=== PATIENT | female | born 1960 | race Caucasian/White ===

== ENCOUNTER 2019-05-30 12:39 | Emergency (ER) | payer OTHER ==
[2019-05-30] MEDS ORDERED: HYDROCODONE/APAP 10/325 TAB ONE (13:07)
--- NOTE | 2019-05-30 13:31 | RAD REPORT ---
EXAM DESCRIPTION: CT - Thorax Wo Con CLINICAL HISTORY: Chest pain fall, right posterior rib injury and pain COMPARISON: No comparisons FINDINGS: Small noncalcified nodule is seen in the superior segment right lower lobe measuring 4-5 m m (image 31/64). The lungs are otherwise clear. No pleural thickening or pleural effusion. No pneumot horax. No axillary, mediastinal or hilar adenopathy. Minimally displaced fracture of the posterior right eleventh rib is not seen near the costovertebral junction. Cholecystectomy clips. All CT scans are performed using dose optimization technique as appropriate and may include automated exposure control or mA/KV adjustment according to patient size. IMPRESSION: Minimally displaced fracture posterior right eleventh rib near the costovertebral juncti on.
[2019-05-30] MEDS ORDERED: KETOROLAC 30 MG/ML INJ ONE (13:57)
--- NOTE | 2019-05-30 15:11 | EDPHYS ---
Physician Documentation [facility] Name: Anabel Coleman Age: 59 yrs Sex: Female : 1960 Arrival Date: 05/30/2019 Time: 12:43 Bed 19 Private MD: ED Physician Uche Lao HPI: 05/30 13:27 This 59 yrs old Female presents to ER via Ambulatory with complaints of Rib rn pain. 13:27 The patient or guardian reports chest pain that is located primarily in the right rn posterior chest wall. Onset: The symptoms/episode began/occurred this morning. The pain does not radiate. Associated signs and symptoms: Pertinent negatives: abdominal pain, diaphoresis, dizziness, near syncope, shortness of breath, syncope, vomiting. The chest pain is described as sharp, stabbing. Duration: The patient or guardian reports multiple episodes, that wax and wane. Modifying factors: The symptoms are alleviated by remaining still, the symptoms are aggravated by deep breath, movement, palpation of area. Severity of pain: At its worst the pain was moderate. The patient has not experienced similar symptoms in the past. Reports fall from standing, this AM, hit right back of thorax on dresser corner, no other injury other than ribs, no head injury or LOC. Not on blood thinners. . Historical: - Allergies: 12:49 Ciprofloxacin; tw2 12:49 METRONIDAZOLE; tw2 - Home Meds: 12:49 Trazodone Oral [Active]; gabapentin oral oral [Active]; Buspirone Oral [Active]; tw2 Bupropion Oral [Active]; - PMHx: 12:49 Hypertension; PTSD; tw2 - PSHx: 12:49 Cholecystectomy; ; Tubal ligation; tw2 - Immunization history:: Adult Immunizations. - Social history:: Smoking status: . - Ebola Screening: : Patient denies travel to an Ebola-affected area in the 21 days before illness onset. - Family history:: not pertinent. - Hospitalizations: : No recent hospitalization is reported. ROS: 13:27 Constitutional: Negative for fever, chills, and weight loss, Eyes: Negative for injury, rn pain, redness, and discharge, Neck: Negative for injury, pain, and swelling, Cardiovascular: Negative for palpitations, and edema, Respiratory: Negative for shortness of breath, cough, wheezing, and pleuritic chest pain, Abdomen/GI: Negative for abdominal pain, nausea, vomiting, diarrhea, and constipation, Back: Negative for injury and pain, MS/Extremity: Negative for injury and deformity, Skin: Negative for injury, rash, and discoloration, Neuro: Negative for headache, weakness, numbness, tingling, and seizure. Exam: 13:27 Constitutional: This is a well developed, well nourished patient who is awake, alert, rn sitting in bed, in obvious pain Head/Face: Normocephalic, atraumatic. Eyes: Pupils equal round and reactive to light, extra-ocular motions intact. Lids and lashes normal. Conjunctiva and sclera are non-icteric and not injected. Cornea within normal limits. Periorbital areas with no swelling, redness, or edema. ENT: No oral trauma Neck: Trachea midline, no thyromegaly or masses palpated, and no cervical lymphadenopathy. Supple, full range of motion without nuchal rigidity, or vertebral point tenderness. No Meningismus. Chest/axilla: + right posterior inferior ribs with contusion, no crepitus, no mobile segments. Cardiovascular: Regular rate and rhythm. No pulse deficits. Respiratory: Lungs have equal breath sounds bilaterally, clear to auscultation. + splinting with deep breath. Abdomen/GI: soft, non-tender Back: No spinal tenderness. No costovertebral tenderness. Full range of motion. MS/ Extremity: Pulses equal, no cyanosis. Neurovascular intact. Full, normal range of motion. Equal circumference. Neuro: Awake and alert, GCS 15, oriented to person, place, time, and situation. Cranial nerves II-XII grossly intact. Motor strength 5/5 in all extremities. Sensory grossly intact. Cerebellar exam normal. Normal gait. Vital Signs: 12:47 BP 124 / 58; Pulse 58; Resp 17; Temp 98.4(TE); Pulse Ox 98% on R/A; Weight 52.16 kg tw2 (R); Height 5 ft. 3 in. (160.02 cm); Pain 6/10; 13:45 BP 96 / 61; Pulse 62; Resp 16 S; Pulse Ox 98% on R/A; ca1 14:58 BP 116 / 69; Pulse 65; Resp 16 S; Pulse Ox 100% on R/A; ca1 15:00 Pain 2/10; ca1 15:00 Pain 2/10; ca1 15:39 BP 111 / 67; Pulse 71; Resp 16 S; Pulse Ox 98% on R/A; ca1 12:47 Body Mass Index 20.37 (52.16 kg, 160.02 cm) tw2 MDM: 12:51 Patient medically screened. rn 15:09 Differential diagnosis: Blunt Chest Trauma Chest Wall Contusion Chest Wall Injury rn Pneumothorax Pulmonary Contusion Rib Fracture. Data reviewed: vital signs, nurses notes, radiologic studies, CT scan, and as a result, I will discharge patient. Counseling: I had a detailed discussion with the patient and/or guardian regarding: the historical points, exam findings, and any diagnostic results supporting the discharge/admit diagnosis, radiology results, the need for outpatient follow up, to return to the emergency department if symptoms worsen or persist or if there are any questions or concerns that arise at home. Response to treatment: the patient's symptoms have mildly improved after treatment, and as a result, I will discharge patient. Special discussion: I discussed with the patient/guardian in detail that at this point there is no indication for admission to the hospital. It is understood, however, that if the symptoms persist or worsen the patient needs to return immediately for re-evaluation. 05/30 13:01 Order name: CT Chest Wo Con; Complete Time: 13:40 rn 05/30 15:09 Order name: INCENTIVE SPIROMETRY rn Administered Medications: 13:31 Drug: [place] 10 mg-325 mg 1 tabs {Note: RASS - O.} Route: PO; ca1 15:00 Follow up: Pain 2/10 Adult; Response: No adverse reaction; Pain is decreased ca1 13:59 Drug: TORadol - Ketorolac 15 mg Route: IM; Site: right deltoid; ca1 15:00 Follow up: Pain 2/10; Response: No adverse reaction; Pain is decreased ca1 Disposition: 05/30/19 15:10 Discharged to Home. Impression: Fracture of one rib, right side. - Condition is Stable. - Discharge Instructions: Rib Fracture, Incentive Spirometer. - Prescriptions for Ibuprofen 800 mg Oral Tablet - take 1 tablet by ORAL route every 12 hours As needed take with food; 20 tablet. Tylenol- Codeine #3 300-30 mg Oral Tablet - take 2 tablets by ORAL route every 6 hours As needed; 20 tablet. - Medication Reconciliation Form, Thank You Letter, Antibiotic Education, Prescription Opioid Use form. - Follow up: Private Physician; When: As needed; Reason: Recheck today's complaints, Re-evaluation by your physician. - Problem is new. - Symptoms have improved. Signatures: Dispatcher [employer] EDMS Uche Lao MD MD rn Xin Nguyen RN RN tw2 Demetria De La Fuente RN RN ca1 Corrections: (The following items were deleted from the chart) 15:41 15:10 05/30/2019 15:10 Discharged to Home. Impression: Fracture of one rib, right side. ca1 Condition is Stable. Forms are Medication Reconciliation Form, Thank You Letter, Antibiotic Education, Prescription Opioid Use. Follow up: Private Physician; When: As needed; Reason: Recheck today's complaints, Re-evaluation by your physician. Problem is new. Symptoms have improved. rn
--- NOTE | 2019-05-30 15:11 | ER ---
Nurse's Notes [facility] Name: Anabel Coleman Age: 59 yrs Sex: Female : 1960 Arrival Date: 05/30/2019 Time: 12:43 Bed 19 Private MD: Diagnosis: Fracture of one rib, right side Presentation: 05/30 12:46 Presenting complaint: Patient states: i have osteoporosis and fell this morning, i hit tw2 the dresser on right side of my ribs, i might have broken a rib. Transition of care: patient was not received from another setting of care. Onset of symptoms was May 30, 2019. Risk Assessment: Do you want to hurt yourself or someone else? Patient reports no desire to harm self or others. Initial Sepsis Screen: Does the patient meet any 2 criteria? No. Patient's initial sepsis screen is negative. Does the patient have a suspected source of infection? No. Patient's initial sepsis screen is negative. Care prior to arrival: None. 12:46 Method Of Arrival: Ambulatory tw2 12:46 Acuity: SHELTON 4 tw2 Triage Assessment: 12:47 General: Appears uncomfortable, Behavior is calm, cooperative, appropriate for age. tw2 Pain: Complains of pain in RIGHT side ribs. Historical: - Allergies: 12:49 Ciprofloxacin; tw2 12:49 METRONIDAZOLE; tw2 - Home Meds: 12:49 Trazodone Oral [Active]; gabapentin oral oral [Active]; Buspirone Oral [Active]; tw2 Bupropion Oral [Active]; - PMHx: 12:49 Hypertension; PTSD; tw2 - PSHx: 12:49 Cholecystectomy; ; Tubal ligation; tw2 - Immunization history:: Adult Immunizations. - Social history:: Smoking status: . - Ebola Screening: : Patient denies travel to an Ebola-affected area in the 21 days before illness onset. - Family history:: not pertinent. - Hospitalizations: : No recent hospitalization is reported. Screenin:11 Abuse screen: Denies threats or abuse. Denies injuries from another. Nutritional ca1 screening: No deficits noted. Tuberculosis screening: No symptoms or risk factors identified. Fall Risk Fall in past 12 months (25 points). Assessment: 13:11 General: Appears in no apparent distress. comfortable, Behavior is calm, cooperative, ca1 appropriate for age. Pain: Complains of pain in right mid back Pain currently is 10 out of 10 on a pain scale. Neuro: Level of Consciousness is awake, alert, obeys commands, Oriented to person, place, time, situation. Cardiovascular: Heart tones S1 S2 present Capillary refill < 3 seconds Patient's skin is warm and dry. Respiratory: Airway is patent Respiratory effort is even, unlabored, Respiratory pattern is regular, symmetrical, Breath sounds are clear bilaterally. GI: Abdomen is round non-distended, Bowel sounds present X 4 quads. Abd is soft and non tender X 4 quads. : No deficits noted. No signs and/or symptoms were reported regarding the genitourinary system. EENT: No deficits noted. No signs and/or symptoms were reported regarding the EENT system. Derm: Skin is intact, is healthy with good turgor, Skin is pink, warm \T\ dry. Musculoskeletal: Circulation, motion, and sensation intact. Capillary refill < 3 seconds, Range of motion: intact in all extremities. 14:15 Reassessment: Patient appears in no apparent distress at this time. Patient and/or ca1 family updated on plan of care and expected duration. Pain level reassessed. Patient is alert, oriented x 3, equal unlabored respirations, skin warm/dry/pink. 14:56 Reassessment: Patient appears in no apparent distress at this time. Patient and/or ca1 family updated on plan of care and expected duration. Pain level reassessed. Patient is alert, oriented x 3, equal unlabored respirations, skin warm/dry/pink. 15:39 Reassessment: Patient appears in no apparent distress at this time. Instructed on use ca1 of incentive spirometer. Pt demonstrated understanding by appropriately using the device. Vital Signs: 12:47 BP 124 / 58; Pulse 58; Resp 17; Temp 98.4(TE); Pulse Ox 98% on R/A; Weight 52.16 kg tw2 (R); Height 5 ft. 3 in. (160.02 cm); Pain 6/10; 13:45 BP 96 / 61; Pulse 62; Resp 16 S; Pulse Ox 98% on R/A; ca1 14:58 BP 116 / 69; Pulse 65; Resp 16 S; Pulse Ox 100% on R/A; ca1 15:00 Pain 2/10; ca1 15:00 Pain 2/10; ca1 15:39 BP 111 / 67; Pulse 71; Resp 16 S; Pulse Ox 98% on R/A; ca1 12:47 Body Mass Index 20.37 (52.16 kg, 160.02 cm) tw2 ED Course: 12:43 Patient arrived in ED. mr 12:47 Triage completed. tw2 12:47 Arm band placed on. tw2 12:51 Uche Lao MD is Attending Physician. rn 12:53 Demetria De La Fuente RN is Primary Nurse. ca1 13:11 Patient has correct armband on for positive identification. Bed in low position. Call ca1 light in reach. Side rails up X 1. Pulse ox on. NIBP on. Warm blanket given. 13:11 No provider procedures requiring assistance completed. Patient did not have IV access ca1 during this emergency room visit. 13:13 CT completed. Patient tolerated procedure well. Patient moved to CT via wheelchair. sw Patient moved back from CT. 13:14 CT Chest Wo Con In Process Unspecified. EDMS Administered Medications: 13:31 Drug: Edward 10 mg-325 mg 1 tabs {Note: RASS - O.} Route: PO; ca1 15:00 Follow up: Pain 2/10 Adult; Response: No adverse reaction; Pain is decreased ca1 13:59 Drug: TORadol - Ketorolac 15 mg Route: IM; Site: right deltoid; ca1 15:00 Follow up: Pain 2/10; Response: No adverse reaction; Pain is decreased ca1 Outcome: 15:10 Discharge ordered by . rn 15:40 Discharged to home ambulatory, with family. ca1 15:40 Condition: stable 15:40 Discharge instructions given to patient, Instructed on discharge instructions, follow up and referral plans. no drinking with medication, no driving heavy equipment, medication usage, Use of Incentive Spirometer Demonstrated understanding of instructions, follow-up care, medications, Prescriptions given X 2. 15:41 Patient left the ED. ca1 Signatures: Dispatcher [employer] EDIL Makayla Darling Uche Lao MD MD rn Warren, Shannon sw Wise, Tara, RN RN tw2 Demetria De La Fuente RN RN ca1 Corrections: (The following items were deleted from the chart) 13:31 13:11 Pain: Complains of pain in left mid back Pain currently is 10 out of 10 on a pain ca1 scale. ca1
[2019-05-30 15:45] VITALS: TEMP 98.4
[2019-05-30 15:50] VITALS: BP 111/67; O2SAT 98
== END 2019-05-30 15:41 | disposition home or self-care (01) ==
LOC: ER 12:39
DX: S22.31XA Fracture of one rib, right side, initial encounter for closed fracture (principal); W18.00XA Striking against unspecified object with subsequent fall, initial encounter; Y93.89 Activity, other specified; Z88.1 Allergy status to other antibiotic agents; Z88.8 Allergy status to other drugs, medicaments and biological substances
CPT/HCPCS: 71250; 96372; 99284

== ENCOUNTER 2019-06-23 13:46 | Emergency (ER) | payer OTHER ==
[2019-06-23] MEDS ORDERED: ONDANSETRON 4 MG/2 ML VIAL ONE (15:23)
[2019-06-23] MEDS ORDERED: NA CHLORIDE 0.9% 1,000 ML ONE (15:23)
[2019-06-23] MEDS ORDERED: MORPHINE 4 MG/ML SYR ONE (15:23)
[2019-06-23 15:38] LABS: Absolute Lymphocytes (CBC) 1.9 K/uL (0.7-4.9); Basophils % 0.6 % (0-1.3); Hematocrit 37.9 % (36.0-45.0); Lymphocytes % 36.7 % (15.3-44.8)
[2019-06-23 15:53] LABS: Albumin 3.8 g/dL (3.4-5.0); Bilirubin Direct 0.2 mg/dL (0-0.2); Bilirubin Total 0.6 mg/dL (0.2-1.0); Protein, Total 7.2 g/dL (6.4-8.2)
--- NOTE | 2019-06-23 16:11 | ER ---
Nurse's Notes [facility] Name: Anabel Coleman Age: 59 yrs Sex: Female : 1960 Arrival Date: 06/23/2019 Time: 13:49 Bed 15 Private MD: None, None Diagnosis: Upper abdominal pain, unspecified;Nausea and vomiting Presentation: 06/23 13:52 Presenting complaint: Patient states: I am having abd pain, I feel like its my la1 pancreatitis I started getting after they tool my gall bladder out. Transition of care: patient was not received from another setting of care. Onset of symptoms was June 23, 2019. Risk Assessment: Do you want to hurt yourself or someone else? Patient reports no desire to harm self or others. Initial Sepsis Screen: Does the patient meet any 2 criteria? No. Patient's initial sepsis screen is negative. Does the patient have a suspected source of infection? No. Patient's initial sepsis screen is negative. Care prior to arrival: None. 13:52 Method Of Arrival: Ambulatory la1 13:52 Acuity: SHELTON 3 la1 Historical: - Allergies: 13:53 Ciprofloxacin; la1 13:53 METRONIDAZOLE; la1 - PMHx: 13:53 Hypertension; PTSD; la1 - PSHx: 13:53 Cholecystectomy; Tubal ligation; ; la1 - Immunization history:: Adult Immunizations up to date. - Social history:: Smoking status: Patient/guardian denies using tobacco. - Ebola Screening: : No symptoms or risks identified at this time. Screenin:11 Abuse screen: Denies threats or abuse. Nutritional screening: No deficits noted. rb1 Tuberculosis screening: No symptoms or risk factors identified. Fall Risk None identified. Assessment: 15:11 General: Appears in no apparent distress. comfortable, Behavior is calm, cooperative, rb1 Denies fever. Pain: Complains of pain in right upper quadrant Pain radiates to epigastric area Pain currently is 2 out of 10 on a pain scale. Neuro: Level of Consciousness is awake, alert, obeys commands, Oriented to person, place, time, situation. Cardiovascular: Capillary refill < 3 seconds is brisk in bilateral fingers. Respiratory: Airway is patent Respiratory effort is even, unlabored, Respiratory pattern is regular, symmetrical. GI: Bowel sounds present X 4 quads. Abd is soft X 4 quads Reports nausea, vomiting. : No signs and/or symptoms were reported regarding the genitourinary system. Derm: Skin is pink, warm \T\ dry. 16:00 Reassessment: Patient appears in no apparent distress at this time. No changes from rb1 previously documented assessment. 17:00 Reassessment: Patient appears in no apparent distress at this time. Patient and/or rb1 family updated on plan of care and expected duration. Pain level reassessed. Patient is alert, oriented x 3, equal unlabored respirations, skin warm/dry/pink. pain 3/10. Vital Signs: 13:53 BP 122 / 71; Pulse 86; Resp 16; Temp 98.4; Pulse Ox 100% on R/A; Weight 52.16 kg; la1 Height 5 ft. 3 in. (160.02 cm); 15:34 BP 120 / 69; Pulse 62; Resp 17; Pulse Ox 97% ; Pain 2/10; rb1 16:30 BP 112 / 77; Pulse 54; Resp 16; Pulse Ox 95% ; Pain 2/10; rb1 17:10 BP 124 / 70; Pulse 69; Resp 17; Pulse Ox 100% on R/A; rb1 13:53 Body Mass Index 20.37 (52.16 kg, 160.02 cm) la1 15:34 pain comes and goes per pt. report rb1 ED Course: 13:49 Patient arrived in ED. ag5 13:50 None, None is Private Physician. ag5 13:52 Triage completed. la1 13:53 Arm band placed on right wrist. la1 14:49 Mame Vasquez, RN is Primary Nurse. rb1 15:02 Patsy Hernandez FNP-C is [facility]. kb 15:02 Uche Lao MD is Attending Physician. kb 15:26 Initial lab(s) drawn, by ga, sent to lab. Inserted saline lock: 22 gauge in right mh5 antecubital area, using aseptic technique. 15:27 Basic Metabolic Panel Sent. mh5 15:27 CBC with Diff Sent. mh5 15:27 Hepatic Function Sent. mh5 15:27 Lipase Sent. mh5 15:28 Patient has correct armband on for positive identification. Placed in gown. Bed in low mh5 position. Call light in reach. Side rails up X 1. Warm blanket given. Pulse ox on. NIBP on. 17:15 No provider procedures requiring assistance completed. IV discontinued, intact, rb1 bleeding controlled, No redness/swelling at site. Pressure dressing applied. Administered Medications: 15:33 Drug: NS 0.9% 1000 ml Route: IV; Rate: 1000 ml; Site: right antecubital; rb1 16:43 Follow up: IV Status: Completed infusion rb1 15:33 Drug: Zofran 4 mg Route: IVP; Site: right antecubital; rb1 15:50 Follow up: Response: No adverse reaction; Nausea is decreased rb1 15:33 Drug: morphine 4 mg Route: IVP; Site: right antecubital; rb1 15:50 Follow up: Response: No adverse reaction; Pain is decreased rb1 17:00 Drug: TORadol - Ketorolac 15 mg Route: IVP; Site: right antecubital; rb1 17:14 Follow up: Response: No adverse reaction rb1 17:19 Follow up: Computer program is not timing the follow up with the correct times. Edited rb1 time is 1714 17:00 Drug: Bentyl 20 mg Route: PO; rb1 17:14 Follow up: Response: No adverse reaction rb1 17:18 Follow up: Error in time; Time edit 1714 rb1 Intake: Outcome: 16:10 Discharge ordered by . kb 17:15 Patient left the ED. rb1 17:15 Discharged to home ambulatory. rb1 17:15 Condition: stable 17:15 Discharge instructions given to patient, Instructed on discharge instructions, follow up and referral plans. medication usage, Demonstrated understanding of instructions, follow-up care, medications, Prescriptions given X 2. Signatures: Patsy Hernandez, ALYSIA-C ALYSIA-Jhon Blanco RN RN la1 Mame Vasquez, JULIETTE RN rb1 Anabel Payne 5 Twan Mata [facility]
--- NOTE | 2019-06-23 16:12 | EDPHYS ---
Physician Documentation [facility] Name: Anabel Coleman Age: 59 yrs Sex: Female : 1960 Arrival Date: 06/23/2019 Time: 13:49 Bed 15 Private MD: None, None ED Physician Uche Lao HPI: 06/23 15:50 This 59 yrs old Female presents to ER via Ambulatory with complaints of kb Abdominal Pain, Nausea/Vomiting. 15:50 The patient presents with abdominal pain in the upper abdomen. Onset: The kb symptoms/episode began/occurred today, at 12:00. The symptoms do not radiate. Associated signs and symptoms: Pertinent positives: nausea and vomiting. The symptoms are described as constant. Modifying factors: The symptoms are alleviated by nothing, the symptoms are aggravated by nothing. Severity of pain: At its worst the pain was moderate in the emergency department the pain has improved mildly. The patient has experienced similar episodes in the past, several times, today's symptoms are similar, to previous pancreatitis. The patient has not recently seen a physician. Pt reports she had her gallbladder removed 5 years ago and it made her have pancreatitis 3 times that year afterwards. States she has gotten it since then a few times when she eats something that flares it up. Today she had a tamale and it caused her to have upper abd pain, nausea and vomiting. Historical: - Allergies: 13:53 Ciprofloxacin; la1 13:53 METRONIDAZOLE; la1 - PMHx: 13:53 Hypertension; PTSD; la1 - PSHx: 13:53 Cholecystectomy; Tubal ligation; ; la1 - Immunization history:: Adult Immunizations up to date. - Social history:: Smoking status: Patient/guardian denies using tobacco. - Ebola Screening: : No symptoms or risks identified at this time. ROS: 15:54 Constitutional: Negative for fever, chills, and weight loss, ENT: Negative for injury, kb pain, and discharge, Neck: Negative for injury, pain, and swelling, Cardiovascular: Negative for chest pain, palpitations, and edema, Respiratory: Negative for shortness of breath, cough, wheezing, and pleuritic chest pain, Back: Negative for injury and pain, : Negative for injury, bleeding, discharge, and swelling, MS/Extremity: Negative for injury and deformity, Skin: Negative for injury, rash, and discoloration, Neuro: Negative for headache, weakness, numbness, tingling, and seizure. 15:54 Abdomen/GI: Positive for abdominal pain, nausea and vomiting, Negative for diarrhea, constipation, abdominal cramps, abdominal distension, anorexia. Exam: 15:54 Constitutional: This is a well developed, well nourished patient who is awake, alert, kb and in no acute distress. Head/Face: Normocephalic, atraumatic. Neck: Trachea midline, no thyromegaly or masses palpated, and no cervical lymphadenopathy. Supple, full range of motion without nuchal rigidity, or vertebral point tenderness. No Meningismus. Chest/axilla: Normal chest wall appearance and motion. Nontender with no deformity. No lesions are appreciated. Cardiovascular: Regular rate and rhythm with a normal S1 and S2. No gallops, murmurs, or rubs. Normal PMI, no JVD. No pulse deficits. Respiratory: Lungs have equal breath sounds bilaterally, clear to auscultation and percussion. No rales, rhonchi or wheezes noted. No increased work of breathing, no retractions or nasal flaring. Back: No spinal tenderness. No costovertebral tenderness. Full range of motion. Skin: Warm, dry with normal turgor. Normal color with no rashes, no lesions, and no evidence of cellulitis. MS/ Extremity: Pulses equal, no cyanosis. Neurovascular intact. Full, normal range of motion. Neuro: Awake and alert, GCS 15, oriented to person, place, time, and situation. Cranial nerves II-XII grossly intact. Motor strength 5/5 in all extremities. Sensory grossly intact. Cerebellar exam normal. Normal gait. 15:54 Abdomen/GI: Inspection: abdomen appears normal, Bowel sounds: normal, in all quadrants, Palpation: soft, in all quadrants, mild abdominal tenderness, in the right upper quadrant and left upper quadrant. Vital Signs: 13:53 BP 122 / 71; Pulse 86; Resp 16; Temp 98.4; Pulse Ox 100% on R/A; Weight 52.16 kg; la1 Height 5 ft. 3 in. (160.02 cm); 15:34 BP 120 / 69; Pulse 62; Resp 17; Pulse Ox 97% ; Pain 2/10; rb1 16:30 BP 112 / 77; Pulse 54; Resp 16; Pulse Ox 95% ; Pain 2/10; rb1 17:10 BP 124 / 70; Pulse 69; Resp 17; Pulse Ox 100% on R/A; rb1 13:53 Body Mass Index 20.37 (52.16 kg, 160.02 cm) la1 15:34 pain comes and goes per pt. report rb1 MDM: 15:03 Patient medically screened. kb 15:55 Data reviewed: vital signs, nurses notes. Data interpreted: Pulse oximetry: on room air kb is 97 %. Interpretation: normal. 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 06/23 15:06 Order name: Basic Metabolic Panel; Complete Time: 15:55 kb 06/23 15:06 Order name: CBC with Diff; Complete Time: 15:55 kb 06/23 15:06 Order name: Hepatic Function; Complete Time: 15:55 kb 06/23 15:06 Order name: Lipase; Complete Time: 15:55 kb 06/23 15:06 Order name: IV Saline Lock; Complete Time: 15:27 kb 06/23 15:06 Order name: Labs collected and sent; Complete Time: 15:27 kb Administered Medications: 15:33 Drug: NS 0.9% 1000 ml Route: IV; Rate: 1000 ml; Site: right antecubital; rb1 16:43 Follow up: IV Status: Completed infusion rb1 15:33 Drug: Zofran 4 mg Route: IVP; Site: right antecubital; rb1 15:50 Follow up: Response: No adverse reaction; Nausea is decreased rb1 15:33 Drug: morphine 4 mg Route: IVP; Site: right antecubital; rb1 15:50 Follow up: Response: No adverse reaction; Pain is decreased rb1 17:00 Drug: TORadol - Ketorolac 15 mg Route: IVP; Site: right antecubital; rb1 17:14 Follow up: Response: No adverse reaction rb1 17:19 Follow up: Computer program is not timing the follow up with the correct times. Edited rb1 time is 2937 17:00 Drug: Bentyl 20 mg Route: PO; rb1 17:14 Follow up: Response: No adverse reaction rb1 17:18 Follow up: Error in time; Time edit 1714 rb1 Disposition: 17:30 Co-signature as Attending Physician, Uche Lao MD. rn Disposition: 06/23/19 16:10 Discharged to Home. Impression: Upper abdominal pain, unspecified, Nausea and vomiting. - Condition is Stable. - Discharge Instructions: Nausea and Vomiting, Adult, Phby-cs-Vpwm, Abdominal Pain, Adult, Onlj-ze-Htri. - Prescriptions for Bentyl 20 mg Oral Tablet - take 1 tablet by ORAL route every 6 hours As needed; 20 tablet. Zofran 4 mg Oral Tablet - take 1 tablet by ORAL route every 6 hours As needed; 20 tablet. - Medication Reconciliation Form, Thank You Letter, Antibiotic Education, Prescription Opioid Use form. - Follow up: Emergency Department; When: As needed; Reason: Worsening of condition. Follow up: Private Physician; When: 2 - 3 days; Reason: Recheck today's complaints, Continuance of care, Re-evaluation by your physician. Signatures: Dispatcher [employer] EDNE Patsy Hernandez, DOUGH CATCHER-C DOUGH CATCHER-Ckb Uche Lao MD MD rn Attema, Lee, RN RN la1 Mame Vasquez RN RN rb1 Corrections: (The following items were deleted from the chart) 17:15 16:10 06/23/2019 16:10 Discharged to Home. Impression: Upper abdominal pain, rb1 unspecified; Nausea and vomiting. Condition is Stable. Forms are Medication Reconciliation Form, Thank You Letter, Antibiotic Education, Prescription Opioid Use. Follow up: Emergency Department; When: As needed; Reason: Worsening of condition. Follow up: Private Physician; When: 2 - 3 days; Reason: Recheck today's complaints, Continuance of care, Re-evaluation by your physician. kb
[2019-06-23] MEDS ORDERED: KETOROLAC 30 MG/ML INJ ONE (16:59)
[2019-06-23] MEDS ORDERED: DICYCLOMINE HCL 10 MG CAP ONE (16:59)
[2019-06-23 18:06] VITALS: TEMP 98.4
[2019-06-23 18:09] VITALS: BP 112/77; O2SAT 95
== END 2019-06-23 17:15 | disposition home or self-care (01) ==
LOC: ER 13:46
DX: R11.2 Nausea with vomiting, unspecified (principal); I10 Essential (primary) hypertension; Z88.1 Allergy status to other antibiotic agents; Z88.8 Allergy status to other drugs, medicaments and biological substances
CPT/HCPCS: 96361; 85025; 80048; 36415; 80076; 83690; 96375; 96374; 99284; J7030; J2405

== ENCOUNTER 2020-12-27 07:15 | Day surgery (SDC) | payer OTHER ==
[2020-12-27] MEDS ORDERED: Ringers Lactate 1,000 ML IV ONE (07:48)
[2020-12-27] MEDS ORDERED: LIDOCAINE 1% W/EPI 1:100,000 MDV 20 ML VIAL ONE (07:54)
[2020-12-27] MEDS ORDERED: NA CHLORIDE 0.9% 1,000 ML ONE (07:54)
[2020-12-27] MEDS ORDERED: MIDAZOLAM HCL 2 MG/2 ML INJ ONE (08:49)
[2020-12-27] MEDS ORDERED: LIDOCAINE 1% MPF 5 ML VIAL ONE (08:49)
[2020-12-27] MEDS ORDERED: propofoL 200 MG/20 ML VIAL IV ONE (08:49)
[2020-12-27] MEDS ORDERED: FENTANYL CITR 100 MCG/2 ML ONE (08:58)
[2020-12-27] MEDS ORDERED: dexAMETHasone 10 MG/ML VIAL ONE (09:06)
[2020-12-27] MEDS ORDERED: KETOROLAC 30 MG/ML INJ ONE (09:06)
[2020-12-27] MEDS ORDERED: ONDANSETRON 4 MG/2 ML VIAL ONE (09:14)
[2020-12-27] MEDS: MORPHINE 4 MG/ML SYR ONE ×2 (09:40→09:45)
[2020-12-27 09:42] VITALS: O2SAT 98
[2020-12-27 11:33] VITALS: BP 112/63; TEMP 98.2
--- NOTE | 2020-12-27 17:05 | OP ---
Date of Procedure: 12/27/2020 Surgeon: Wen Car MD Preoperative Diagnosis: Postmenopausal bleeding. Postoperative Diagnosis: Postmenopausal bleeding. Procedures Performed: Hysteroscopy, D and C. Anesthesia: General with LMA. Specimens: Endometrial curettings. Complications: No complications. Drains: No drains. Condition: Stable. Findings: Vaginal diameter at the introitus very narrow. On hysteroscopic examination, the uterine cavity had very thin endometrial lining. There was adequate visualization in the entire cavity. No evidence of any irregular endometrium intracavitary polyps. On curettage, scant endometrium was retr ieved. Indications: The patient is a 60-year-old female, who presented with postmenopausal bleeding to Dr. Knott. She was evaluated and was recommended to have an ultrasound and a hysteroscopic biopsy. She was then concerned about her plan of care and came for a second opinion. I had explained that was a routine standard of care to be doing an ultrasound followed by a hysteroscopic evaluation of the endo metrium. So, once all these were explained, she was given choice to go back to Dr. Knott as he had m gwen the same plan; however, the patient wanted to continue to stay for the evaluation here, so she wa s consented for hysteroscopy, D and C. Description Of Procedure: After informed consent was verified, she was taken back to OR, placed in a supine fashion on the operating table. After general anesthesia was given, she was placed in dorsal lithotomy position. General anesthesia was chosen for this patient as she has extreme anxiety, hist ory of severe PTSD. She was then placed in a dorsal lithotomy position. Vulva, vagina, and perineum were prepped and draped in a sterile fashion. Speculum placed to expose the cervix with a bivalve s peculum. There were periurethral lacerations superficial. So even though the speculum was just medi um, it was difficult to avoid those. The speculum was removed. A smaller speculum placed in the pos terior vagina after grasping the anterior lip of the cervix. Then, the cervix was injected with 1% l idocaine mixed with 1:100,000 epinephrine, 5 cc anterior, 12 o'clock position, and 4 and 8 o'clock po sitions of the cervicovaginal junction and other 5 cc each. Next, the external os was slightly furth er opened up with the help of a hemostat and anterior lip grasped better with 2 Allis. Diagnostic Sl imLine hysteroscope was introduced into the cervical canal and under direct vision, the uterine cavit y was entered. This was very tight. I had to gently and carefully, but firmly pass through the cerv ical canal in order to get to the uterus. Once I was in the uterine cavity, there was excellent visu alization. One intrauterine adhesion was seen. No intracavitary lesions. The endometrium appeared to be well visualized and no evidence of any tumors. So, the scope was removed. The cervix was dila jelly to 16-Tamazight. The cavity length was only 5 cm with a very tiny cavity, so I used a narrow endoce rvical curettes to curette the endometrium as well. The 0 curette did not fit in. Also given the fa ct that her uterus was so small, I did not see any need for any further MyoSure based biopsy as this is very thin and consistent with just atrophic endometrium. We discussed having of using the device with the MyoSure perforation in such a thin postmenopausal uterus was high, so I decided not to use t he device. The instruments were removed. Curettings were handed over for permanent pathology. Instrument, need le, and sponge counts were done and were correct at the case of the case. The periurethral and vesti bular lacerations were visualized. They were less than half a cm on the periurethral areas and just under a cm on the vestibule. They were hemostatic, just had some ecchymosis, did not need any suture s. The patient was recovered from anesthesia and taken to PACU in stable condition. She has a 1-week followup appointment with me. Plan would be just to observe the patient and do a repeat ultrasound in 6 months. ROBLES/MANOJ Voice ID: [id number] Report ID: [id number]
== END 2020-12-27 11:15 | disposition home or self-care (01) ==
LOC: OR 07:15
PROVIDERS: ATTEND Obstetrics & Gynecology
PROC: 0UJD8ZZ Inspection of Uterus and Cervix, Via Natural or Artificial Opening Endoscopic (ICD-10-PCS; 2020-12-27)
PROC: 0UDB7ZX Extraction of Endometrium, Via Natural or Artificial Opening, Diagnostic (ICD-10-PCS; principal; 2020-12-27 08:15)
DX: N95.0 Postmenopausal bleeding (principal); K85.90 Acute pancreatitis without necrosis or infection, unspecified; F33.1 Major depressive disorder, recurrent, moderate; F41.9 Anxiety disorder, unspecified; Z20.822 Contact with and (suspected) exposure to COVID-19
CPT/HCPCS: 88305; 58558; U0002; J2704; J2250; J3010; J1100; J7120; J7030; J2405

== ENCOUNTER 2021-12-31 08:21 | Emergency (ER) | payer OTHER ==
--- OUTSIDE RECORDS SUMMARY | 2021-12-31 08:23 | XMS REPORT | Continuity of Care Document ---
:1960 Author Organization [facility] t Address [address] [place] [address] Care Team Providers Name Role Phone Naveed CHARLES Primary Care Physician Unavailable Kwabena Berger MD Attending Clinician Kwabena BERGER Attending Clinician Unavailable Kwabena BERGER Attending Clinician Unavailable Payers Payer Name Policy Type Policy Number Effective Date Expiration Date S ource Problems Condition Condition Condition Status Onset Resolution Last Treating Co mments Source Name Details Category Date Date Treatment Clinician Date No known No known Disease Unive rs active active ity of problems problems [facility] Allergies, Adverse Reactions, Alerts Allergy Allergy Status Severity Reaction(s) Onset Inactive Treating Comm ents Source Name Type Date Date Clinician NO KNOWN Drug Active Univers ALLERGIE Class ity of S [facility] Social History Social Habit Start Date Stop Date Quantity Comments Source Exposure to Not sure [facility] SARS-CoV-2 (event) [facility] Sex Ass[birth year] At [birth year] [facility] 00:00:00 00:00:00 [facility] Smoking Status Start Date Stop Date Source Unknown if ever smoked [facility] Medications Ordered Filled Start Stop Current Ordering Indication Dosage Frequency Signature Comments Components Source Medication Medication Date Date Medication? Clinician (SIG) Name Name No known 2020-08 No [facility] medications 2-08 ity of 10:12: [address] No known 2020-08 No [facility] medications 2-08 ity of 10:12: [address] Immunizations Ordered Filled Immunization Date Status Comments Sour e Immunization Name Name SARS-COV-2 COVID-19 2020-12-07 Completed Unive rsity of PFIZER VACCINE 00:00:[address] [facility] SARS-COV-2 COVID-19 2020-12-07 Completed Unive rsity of PFIZER VACCINE 00:00:[address] [facility] SARS-COV-2 COVID-19 2020-11-17 Completed Unive rsity of PFIZER VACCINE 00:00:[address] [facility] SARS-COV-2 COVID-19 2020-11-17 Completed Unive rsity of PFIZER VACCINE 00:00:[address] [facility] Vital Signs Vital Name Observation Time Observation Value Comments Source Systolic blood 2021-07-10 16:17:00 109 mm[Hg] Univer sity of pressure [facility] Diastolic blood 2021-07-10 16:17:00 69 mm[Hg] Unive rsity of pressure [facility] Heart rate 2021-07-10 16:17:00 64 /min [facility] Body temperature 2021-07-10 16:17:00 36.06 Laurita [facility] Respiratory rate 2021-07-10 16:17:00 18 /min [facility] Body height 2021-07-10 16:17:00 160 cm [facility] Body weight 2021-07-10 16:17:00 59.966 kg [facility] BMI 2021-07-10 16:17:00 23.42 kg/m2 [facility] Oxygen saturation in 2021-07-10 16:17:00 97 /min [facility] Arterial blood by [facility] Pulse oximetry Branch Procedures This patient has no known procedures. Encounters Start End Encounter Admission Attending Care Care Encounter Source Date/Time Date/Time Type Type Clinicians Facility Department ID 2021-07-10 2021-07-10 Office Ab MESKYLER [id number] [facility] 10:07:23 10:27:23 Visit Audie LISA [id number] Yousuf [id number] Lionel MARIO [id number] Mn dical NAL 085 [facility] 2021-07-10 2021-07-10 Outpatient R AUDIE BERGER [facility] [id number] [facility] 10:00:00 10:00:00 AUDIE BERGER [facility] Results This patient has no known results.
[2021-12-31] MEDS ORDERED: MORPHINE 4 MG/ML SYR ONE (08:54)
[2021-12-31] MEDS ORDERED: ONDANSETRON 4 MG/2 ML VIAL ONE ×2 (08:54→11:56)
[2021-12-31] MEDS ORDERED: NA CHLORIDE 0.9% 1,000 ML ONE (08:54)
[2021-12-31 09:26] LABS: Absolute Lymphocytes (CBC) 0.8 K/uL (0.7-4.9); Hematocrit 41.7 % (36.0-45.0); Lymphocytes % 4.3 % (15.3-44.8); MPV 7.8 fL (7.6-11.3); RBC Red Blood Cell Count 4.53 M/uL (3.86-4.86)
[2021-12-31 09:27] LABS: Protime INR 1.19
[2021-12-31 09:41] LABS: Albumin 4.2 g/dL (3.4-5.0); Bilirubin Total 1.4 mg/dL (0.2-1.0); Potassium 3.1 mmol/L (3.5-5.1); Protein, Total 7.9 g/dL (6.4-8.2)
[2021-12-31] MEDS ORDERED: PROMETHAZINE INJ 25 MG/ML AMP ONE (09:57)
[2021-12-31 09:58] LABS: Blood Morphology Comment NOT SEEN (NOT SEEN); Platelet Estimate ADEQ
--- NOTE | 2021-12-31 10:14 | RAD REPORT ---
EXAM DESCRIPTION: CTAbdomen Pelvis W Contrast - 12/31/2021 10:04 am CLINICAL HISTORY: Epigastric pain COMPARISON: CT ABD PELVIS W CONTRAST dated 03/13/2014 TECHNIQUE: CT of the abdomen and pelvis was performed. All CT scans are performed using dose optimization technique as appropriate and may include automated exposure control or mA/KV adjustment according to patient size. FINDINGS: Lower chest: Small hiatal hernia. Liver: No acute abnormality or suspicious lesions. Biliary: Cholecystectomy. Mild intra and extrahepatic biliary ductal dilatation is likely related to the postcholecystectomy state. It is unchanged since 2013. Stomach: Small hiatal hernia. Duodenum: No significant focal abnormality. Pancreas: No significant abnormality. Spleen: No significant abnormality. Adrenal: No suspicious lesions. Kidney/ureter: No hydronephrosis. No renal calculi. Too small to characterize and/or benign appearing renal lesions are noted. Retroperitoneum: No retroperitoneal adenopathy. Vascular: No aneurysm. Bowel: Normal appendix.. Peritoneum: No ascites or free air. Bladder: Grossly unremarkable. Reproductive: 16 mm intramural fibroid. Bones: No acute fracture. Other: n/a IMPRESSION: No acute intra-abdominal or pelvic finding. Incidental findings as noted above.
[2021-12-31] MEDS ORDERED: POTASSIUM CL SA 10 MEQ TAB PO ONE (11:00)
--- NOTE | 2021-12-31 11:04 | EDPHYS ---
Physician Documentation [facility] Name: Anabel Coleman Age: 61 yrs Sex: Female : 1960 Arrival Date: 12/31/2021 Time: 08: Bed 20 Private MD: ED Physician Bartolome Pope HPI: 12/31 08:34 This 61 yrs old Female presents to ER via Wheelchair with complaints of Vomiting, jh7 Nausea. 08:34 The patient presents to the emergency department with nausea, vomiting, described as jh7 coffee ground in nature, diarrhea, abdominal pain. Onset: The symptoms/episode began/occurred 4 day(s) ago. Patient presents with nausea vomiting and diarrhea since Thursday. States that she has a history of bleeding ulcers, but reports that that was many years ago. States that she has been vomiting blood, and that her stool has been dark. Also complains of epigastric pain. Patient is actively vomiting in triage.. Historical: - Allergies: 08:30 Ciprofloxacin; iw 08:30 metronidazole; iw - PMHx: 08:30 Hypertension; PTSD; iw ROS: 08:34 ENT: Negative for injury, pain, and discharge, Cardiovascular: Negative for chest pain, jh7 palpitations, and edema, Respiratory: Negative for shortness of breath, cough, wheezing, and pleuritic chest pain, Back: Negative for injury and pain, Skin: Negative for injury, rash, and discoloration, Neuro: Negative for headache, weakness, numbness, tingling, and seizure. 08:34 Constitutional: Positive for fatigue, poor PO intake, Negative for chills, fever. 08:34 Abdomen/GI: Positive for abdominal pain, nausea, vomiting, and diarrhea, black/tarry stool. 08:34 All other systems are negative. Exam: 08:34 ENT: Nares patent. No nasal discharge, no septal abnormalities noted. Oropharynx with jh7 no redness, swelling, or masses, exudates, or evidence of obstruction, uvula midline. Mucous membranes moist. Cardiovascular: Regular rate and rhythm with a normal S1 and S2. No gallops, murmurs, or rubs. Normal PMI, no JVD. No pulse deficits. Respiratory: Lungs have equal breath sounds bilaterally, clear to auscultation and percussion. No rales, rhonchi or wheezes noted. No increased work of breathing, no retractions or nasal flaring. Back: No spinal tenderness. No costovertebral tenderness. Full range of motion. Skin: Warm, dry with normal turgor. Normal color with no rashes, no lesions, and no evidence of cellulitis. MS/ Extremity: Pulses equal, no cyanosis. Neurovascular intact. Full, normal range of motion. Neuro: Awake and alert, GCS 15, oriented to person, place, time, and situation. Normal gait. 08:34 Constitutional: The patient appears alert, awake, pale, restless, uncomfortable. 08:34 Abdomen/GI: Inspection: abdomen appears normal, Bowel sounds: normal, Palpation: moderate abdominal tenderness, in the epigastric area. Vital Signs: 08:29 BP 102 / 77; Pulse 68; Resp 18; Temp 99.3; Pulse Ox 97% on R/A; iw 09:00 BP 122 / 58; Pulse 75; Resp 16; Temp 99.0(O); Pulse Ox 99% on R/A; vg1 10:15 BP 96 / 49; Pulse 76; Resp 16; Pulse Ox 100% on R/A; vg1 11:55 BP 103 / 62; Pulse 72; Resp 16; Pulse Ox 99% on R/A; vg1 MDM: 08:34 Patient medically screened. [facility] 11:24 Differential diagnosis: gastroenteritis. Data reviewed: vital signs, nurses notes, lab [facility] test result(s), radiologic studies, CT scan, I have discussed the patient's presentation/case with the attending Emergency Department Physician;. Data interpreted: Pulse oximetry: is 100 %. Interpretation: normal. Counseling: I had a detailed discussion with the patient and/or guardian regarding: the historical points, exam findings, and any diagnostic results supporting the discharge/admit diagnosis, the need for outpatient follow up, a digital sales planner. Response to treatment: the patient's symptoms have markedly improved after treatment. ED course: The patient remained hemodynamically stable throughout the ER visit. Her hemoglobin and hematocrit were within normal range, her CT was negative, and her stool occult was negative as well. She markedly improved after medication therapy and passed a p.o. challenge. She was advised to follow-up with GI outpatient. If her symptoms return, worsen, or any new concerning symptoms develop, she was advised to return to the ER for further eval. The patient understood the plan of care and felt comfortable with being discharged.. 12/31 08:34 Order name: CBC with Diff; Complete Time: 10:10 7 12/31 08:34 Order name: CMP; Complete Time: 09:43 7 12/31 08:34 Order name: Lipase; Complete Time: 09:43 7 12/31 08:34 Order name: PT-INR; Complete Time: 09:32 7 12/31 08:34 Order name: Type And Screen; Complete Time: 10:10 7 12/31 08:34 Order name: CT Abd/Pelvis - IV Contrast Only; Complete Time: 10:25 [facility] 12/31 09:58 Order name: Manual Differential; Complete Time: 10:10 [facility] 12/31 10:32 Order name: COVID-19 SARS RT PCR (Document "Date of Onset" if Symptomatic) [facility] 12/31 11:02 Order name: Guiac; Complete Time: 11:26 [facility] 12/31 11:20 Order name: ABO/RH no charge; Complete Time: 11:26 [facility] 12/31 08:34 Order name: IV Saline Lock; Complete Time: 09:16 7 12/31 08:34 Order name: Labs collected and sent; Complete Time: 09:16 7 Administered Medications: 09:03 Drug: NS 0.9% 1000 ml Route: IV; Rate: 1 bolus; Site: right antecubital; vg1 10:59 Follow up: IV Status: Completed infusion; IV Intake: 1000ml vg1 09:03 Drug: Zofran (Ondansetron) 4 mg Route: IVP; Site: right antecubital; vg1 09:55 Follow up: Response: No adverse reaction; No change in condition vg1 09:05 Drug: morphine 4 mg Route: IVP; Infused Over: 4 mins; Site: right antecubital; vg1 09:55 Follow up: Response: No adverse reaction; Marked relief of symptoms vg1 09:55 Drug: Phenergan (promethazine) 12.5 mg Route: IVP; Site: right antecubital; vg1 11:00 Follow up: Response: No adverse reaction; Marked relief of symptoms; Nausea is decreasedvg1 11:00 Drug: Potassium Chloride 40 mEq Route: PO; vg1 11:56 Follow up: Response: No adverse reaction vg1 11:02 Not Given (Pharmacy stated out of medication): Pepcid (famotidine) 20 mg IVP once; vg1 dilute with 10 mL 0.9% NaCl; give over 2 minutes 11:50 Drug: Zofran (Ondansetron) 4 mg Route: IVP; Site: right antecubital; vg1 11:56 Follow up: Response: Medication administered at discharge. vg1 Disposition: 21:59 Co-signature as Attending Physician, Bartolome Pope DO I was immediately available on-site ms3 in the Emergency Department for consultation in the care of the patient. . Disposition Summary: 12/31/21 11:03 Discharge Ordered Location: Home [facility] Problem: new [facility] Symptoms: have improved [facility] Condition: Stable [facility] Diagnosis - Nausea with vomiting, unspecified [facility] Followup: [facility] - With: Rocky Rudolph MD - When: 2 - 3 days - Reason: Further diagnostic work-up, Recheck today's complaints Discharge Instructions: - Discharge Summary Sheet [facility] - Nausea and Vomiting, Adult [facility] - Nausea, Adult [facility] Forms: - Medication Reconciliation Form [facility] - Thank You Letter [facility] Prescriptions: - ondansetron 4 mg Oral tablet,disintegrating - take 1 tablet by ORAL route 4 times per day As needed; 20 tablet; Refills: 0, [facility] Product Selection Permitted - Pepcid 20 mg Oral Tablet - take 1 tablet by ORAL route once daily; 20 tablet; Refills: 0, Product jh7 Selection Permitted - dicyclomine 20 mg Oral Tablet - take 1 tablet by ORAL route 3 times per day; 21 tablet; Refills: 0, Product 7 Selection Permitted Signatures: Dispatcher [employer] Cait Magana RN Clementine Peralta RN RN vg1 Sims, Marcus, DO DO ms3 Lili Mane FNP BIOLOGY RESEARCH ASSISTANT [facility]
--- NOTE | 2021-12-31 11:04 | ER ---
Nurse's Notes [facility] Name: Anabel Coleman Age: 61 yrs Sex: Female : 1960 Arrival Date: 12/31/2021 Time: 08:25 Bed 20 Private MD: Diagnosis: Nausea with vomiting, unspecified Presentation: 12/31 08:29 Chief complaint: Patient states: vomiting since Thursday night, vomiting blood and bile. iw Coronavirus screen: Client presents with at least one sign or symptom that may indicate coronavirus-19. Ebola Screen: Patient negative for fever greater than or equal to 101.5 degrees Fahrenheit, and additional compatible Ebola Virus Disease symptoms Patient denies exposure to infectious person. Patient denies travel to an Ebola-affected area in the 21 days before illness onset. No symptoms or risks identified at this time. Initial Sepsis Screen: Does the patient meet any 2 criteria? No. Patient's initial sepsis screen is negative. Does the patient have a suspected source of infection? No. Patient's initial sepsis screen is negative. Risk Assessment: Do you want to hurt yourself or someone else? Patient reports no desire to harm self or others. Onset of symptoms was December 28, 2021. 08:29 Method Of Arrival: Wheelchair iw 08:29 Acuity: SHELTON 3 iw Historical: - Allergies: 08:30 Ciprofloxacin; iw 08:30 metronidazole; iw - PMHx: 08:30 Hypertension; PTSD; iw Screenin:19 Abuse screen: Denies threats or abuse. Nutritional screening: Has had N/V for 3 or more vg1 days. Tuberculosis screening: No symptoms or risk factors identified. Fall Risk No fall in past 12 months (0 pts). No secondary diagnosis (0 pts). IV access (20 points). Ambulatory Aid- None/Bed Rest/Nurse Assist (0 pts). Gait- Normal/Bed Rest/Wheelchair (0 pts) Mental Status- Oriented to own ability (0 pts). Total Whitt Fall Scale indicates No Risk (0-24 pts). Assessment: 08:55 General: Appears uncomfortable, Behavior is calm, cooperative. Pain: Complains of pain vg1 in epigastric area, right upper quadrant and left upper quadrant Pain currently is 6 out of 10 on a pain scale. Pain began 2-3 days ago. Neuro: Winston Agitation-Sedation Scale (RASS): +1 Restless Level of Consciousness is awake, alert, obeys commands, Oriented to person, place, time, situation. Cardiovascular: Patient's skin is warm and dry. Respiratory: Airway is patent Respiratory effort is even, unlabored. GI: Abdomen is flat, Abdomen is tender to palpation in epigastric area, right upper quadrant and left upper quadrant Reports diarrhea, nausea, vomiting, since Thursday pt stated noticing 'blood streaks on Thursday that was bright red and then now its brownish in color'. : No signs and/or symptoms were reported regarding the genitourinary system. EENT: No signs and/or symptoms were reported regarding the EENT system. Derm: Skin is intact, is healthy with good turgor. Musculoskeletal: Circulation, motion, and sensation intact. 11:00 Reassessment: Patient appears in no apparent distress at this time. Patient and/or vg1 family updated on plan of care and expected duration. Pain level reassessed. Patient is alert, oriented x 3, equal unlabored respirations, skin warm/dry/pink. Patient states feeling better. 11:55 Reassessment: Patient appears in no apparent distress at this time. Patient and/or vg1 family updated on plan of care and expected duration. Pain level reassessed. Patient is alert, oriented x 3, equal unlabored respirations, skin warm/dry/pink. pt stated nausea; provider notified. Received VO from Alhaji to administer zofran 4 mg IVP x1. Vital Signs: 08:29 BP 102 / 77; Pulse 68; Resp 18; Temp 99.3; Pulse Ox 97% on R/A; iw 09:00 BP 122 / 58; Pulse 75; Resp 16; Temp 99.0(O); Pulse Ox 99% on R/A; vg1 10:15 BP 96 / 49; Pulse 76; Resp 16; Pulse Ox 100% on R/A; vg1 11:55 BP 103 / 62; Pulse 72; Resp 16; Pulse Ox 99% on R/A; vg1 ED Course: 08:25 Patient arrived in ED. as 08:25 Lili Mane FNP is [facility] 08:25 Bartolome Pope DO is Attending Physician. [facility] 08:30 Triage completed. iw 08:30 Arm band placed on. iw 08:47 Clementine Collins, RN is Primary Nurse. vg1 09:00 No provider procedures requiring assistance completed. Initial lab(s) drawn, by ia, vg1 sent to lab. Inserted saline lock: 20 gauge in right antecubital area, using aseptic technique. Blood collected. 09:19 Patient has correct armband on for positive identification. Bed in low position. Call vg1 light in reach. Side rails up X 1. 10:06 CT Abd/Pelvis - IV Contrast Only In Process Unspecified. EDMS 11:03 Rocky Rudolph MD is Referral Physician. [facility] 11:55 IV discontinued, intact, bleeding controlled, No redness/swelling at site. Pressure vg1 dressing applied. Administered Medications: 09:03 Drug: NS 0.9% 1000 ml Route: IV; Rate: 1 bolus; Site: right antecubital; vg1 10:59 Follow up: IV Status: Completed infusion; IV Intake: 1000ml vg1 09:03 Drug: Zofran (Ondansetron) 4 mg Route: IVP; Site: right antecubital; vg1 09:55 Follow up: Response: No adverse reaction; No change in condition vg1 09:05 Drug: morphine 4 mg Route: IVP; Infused Over: 4 mins; Site: right antecubital; vg1 09:55 Follow up: Response: No adverse reaction; Marked relief of symptoms vg1 09:55 Drug: Phenergan (promethazine) 12.5 mg Route: IVP; Site: right antecubital; vg1 11:00 Follow up: Response: No adverse reaction; Marked relief of symptoms; Nausea is decreasedvg1 11:00 Drug: Potassium Chloride 40 mEq Route: PO; vg1 11:56 Follow up: Response: No adverse reaction vg1 11:02 Not Given (Pharmacy stated out of medication): Pepcid (famotidine) 20 mg IVP once; vg1 dilute with 10 mL 0.9% NaCl; give over 2 minutes 11:50 Drug: Zofran (Ondansetron) 4 mg Route: IVP; Site: right antecubital; vg1 11:56 Follow up: Response: Medication administered at discharge. vg1 Medication: 08:55 VIS not applicable for this client. vg1 Intake: 10:59 IV: 1000ml; Total: 1000ml. vg1 Outcome: 11:03 Discharge ordered by . warner 11:55 Discharged to home ambulatory. vg1 11:55 Condition: good 11:55 Discharge instructions given to patient, Instructed on discharge instructions, follow up and referral plans. medication usage, Demonstrated understanding of instructions, follow-up care, medications, Prescriptions given X 3. 11:57 Patient left the ED. vg1 Signatures: Dispatcher [employer] EDEden Lucia Irene, RN RN iw Garcia, Victoria, RN RN vg1 Lili Mane FNP FNP [facility]
[2021-12-31 12:03] VITALS: TEMP 99
[2021-12-31 12:08] VITALS: BP 103/62; O2SAT 99
== END 2021-12-31 11:57 | disposition home or self-care (01) ==
LOC: ER 08:21
DX: R11.2 Nausea with vomiting, unspecified (principal); R10.9 Unspecified abdominal pain; R53.83 Other fatigue; I10 Essential (primary) hypertension; F43.10 Post-traumatic stress disorder, unspecified; Z20.822 Contact with and (suspected) exposure to COVID-19
CPT/HCPCS: 85025; 36415; 86900; 86850; 85610; 86901; 82272; 83690; 80053; 74177; U0003; Q9967; J2550; J7030; J2405 ×2; 96361; 96374; 96375; 99284

== ENCOUNTER 2022-01-01 07:39 | Emergency (ER) | payer OTHER ==
--- OUTSIDE RECORDS SUMMARY | 2022-01-01 07:43 | XMS REPORT | Continuity of Care Document ---
:[address] [facility] t Address [address] [place] [address] Care Team Providers Name Role Phone Naveed [...] rs active active ity of problems problems [facility] Allergies, Adverse Reactions, Alerts Allergy Allergy Status Severity Reaction(s) Onset Inactive Treating Comm ents Source Name Type Date Date Clinician NO KNOWN Drug Active [facility] ALLERGIE Class ity of S [facility] Social History Social Habit Start Date Stop Date Quantity Comments Source Exposure to Not sure [facility] SARS-CoV-2 (event) [facility] Branch Sex Assigned At [birth year] [facility] 00:00:00 00:00:00 [facility] Smoking Status Start Date Stop Date Source Unknown if ever smoked [facility] Medications Ordered Filled Start Stop Current Ordering Indication Dosage Frequency Signature Comments Components Source Medication Medication Date Date Medication? Clinician (SIG) Name Name No known 2020-08 No [facility] medications 2-08 ity of 10:12: [address] No known 2020-08 No [facility] medications 2-08 ity of 10:12: [address] Immunizations Ordered Filled Immunization Date Status Comments Sour e Immunization Name Name SARS-COV-2 COVID-19 2020-12-07 Completed Unive rsity of PFIZER VACCINE 00:00:00 [facility] SARS-COV-2 COVID-19 2020-12-07 Completed Unive rsity of PFIZER VACCINE 00:00:00 [facility] SARS-COV-2 COVID-19 2020-11-17 Completed Unive rsity of PFIZER VACCINE 00:00:00 [facility] SARS-COV-2 COVID-19 2020-11-17 Completed Unive rsity of PFIZER VACCINE 00:00:00 [facility] Vital Signs Vital Name Observation Time Observation Value Comments Source Systolic blood 2021-07-10 16:17:00 109 mm[Hg] Univer sity of pressure [facility] Diastolic blood 2021-07-10 16:17:00 69 mm[Hg] Unive rsity of pressure [facility] Heart rate 2021-07-10 16:17:00 64 /min [facility] Body temperature 2021-07-10 16:17:00 36.06 [facility] 2021-07-10 16:17:00 18 /min [facility] Body height 2021-07-10 16:17:00 160 cm [facility] Body weight 2021-07-10 16:17:00 59.966 kg [facility] BMI 2021-07-10 16:17:00 23.42 kg/m2 [facility] Oxygen saturation in 2021-07-10 16:17:00 97 /min [facility] Arterial blood by [facility] Pulse oximetry Branch Procedures This patient has no known procedures. Encounters Start End Encounter Admission Attending Care Care Encounter Source Date/Time Date/Time Type Type Clinicians Facility Department ID 2021-07-10 2021-07-10 Office Ab [facility]SKYLER [id number] [facility] 10:07:23 10:27:23 Visit Audie LISA [id number] Yousuf [id number] Lionel MARIO [id number] Ne dical NAL 085 [facility] 2021-07-10 2021-07-10 Outpatient R AUDIE BERGER [facility] [id number] [facility] 10:00:00 10:00:00 AUDIE BERGER [facility] Results This patient has no known results.
[2022-01-01 09:06] LABS: Urine Blood 2+ (Negative); Urine Glucose Negative (Negative); Urine Protein 1+ (Negative); Urine Specific Gravity >=1.030 (1.005-1.030)
[2022-01-01] MEDS ORDERED: MORPHINE 2 MG/ML SYR ONE ×2 (09:06→10:26)
[2022-01-01] MEDS ORDERED: PANTOPRAZOLE 40 MG INJ ONE (09:06)
[2022-01-01] MEDS ORDERED: ONDANSETRON 4 MG/2 ML VIAL ONE ×2 (09:06→10:26)
[2022-01-01 09:19] LABS: Absolute Lymphocytes (CBC) 1.3 K/uL (0.7-4.9); Hematocrit 38.2 % (36.0-45.0); Lymphocytes % 7.3 % (15.3-44.8); MPV 8.1 fL (7.6-11.3); RBC Red Blood Cell Count 4.11 M/uL (3.86-4.86)
[2022-01-01 09:22] LABS: Urine Bacteria 20-50 /HPF (<20); Urine Mucus 1+ /HPF (NONE SEEN)
[2022-01-01 09:48] LABS: Albumin 3.8 g/dL (3.4-5.0); Bilirubin Total 1.2 mg/dL (0.2-1.0); Magnesium 2.2 mg/dL (1.8-2.4); Potassium 3.7 mmol/L (3.5-5.1); Protein, Total 7.5 g/dL (6.4-8.2)
--- NOTE | 2022-01-01 10:47 | RAD REPORT ---
EXAM DESCRIPTION: RAD - Chest Single View - 01/01/2022 10:10 am CLINICAL HISTORY: nausea/vomiting Chest pain. COMPARISON: ABDOMEN ACUTE SERIES dated 03/09/2014; CHEST SINGLE VIEW dated 01/25/2014 FINDINGS: Portable technique limits examination quality. The lungs are grossly clear. The heart is normal in size. No displaced fractures. IMPRESSION: No acute intrathoracic process suspected.
[2022-01-01] MEDS ORDERED: PROMETHAZINE INJ 25 MG/ML AMP ONE (12:10)
--- NOTE | 2022-01-01 14:26 | ER ---
Nurse's Notes [facility] Name: Anabel Coleman Age: 61 yrs Sex: Female : 1960 Arrival Date: 01/01/2022 Time: 07:39 Bed 8 Private MD: Diagnosis: Nausea with vomiting, unspecified Presentation: 01/01 08:13 Chief complaint: Patient states: Lower abd pain and nausea that began Thursday. Pt was ss seen in ER yesterday for same complaints. Coronavirus screen: Client denies travel out of the [place] in the last 14 days. Ebola Screen: Patient denies exposure to infectious person. Patient denies travel to an Ebola-affected area in the 21 days before illness onset. Initial Sepsis Screen: Does the patient meet any 2 criteria? No. Patient's initial sepsis screen is negative. Does the patient have a suspected source of infection? No. Patient's initial sepsis screen is negative. Risk Assessment: Do you want to hurt yourself or someone else? Patient reports no desire to harm self or others. Onset of symptoms was December 27, 2021. 08:13 Method Of Arrival: Ambulatory ss 08:13 Acuity: [place] 3 ss Historical: - Allergies: 08:15 Ciprofloxacin; ss 08:15 metronidazole; ss 11:30 Sulfa (Sulfonamide Antibiotics); aa5 - PMHx: 08:15 Hypertension; PTSD; ss - Immunization history:: Client reports receiving the 2nd dose of the Covid vaccine. - Social history:: Smoking status: Patient/guardian denies using tobacco, but has a distant history of tobacco abuse. Screenin:00 Abuse screen: Denies threats or abuse. Nutritional screening: No deficits noted. aa5 Tuberculosis screening: No symptoms or risk factors identified. Fall Risk None identified. Assessment: 08:50 General: Appears uncomfortable, Behavior is calm, cooperative. Pain: Complains of pain aa5 in left upper quadrant and left lower quadrant Pain currently is 6 out of 10 on a pain scale. Quality of pain is described as sharp, Pain began 4 days ago Is continuous. Neuro: Level of Consciousness is awake, alert, obeys commands, Oriented to person, place, time, situation. Cardiovascular: Heart tones S1 S2 present Patient's skin is warm and dry. Rhythm is regular. Respiratory: Airway is patent Respiratory effort is even, unlabored, Respiratory pattern is regular, symmetrical. GI: Abdomen is flat, non-distended, Bowel sounds present X 4 quads. Abd is soft and non tender X 4 quads. Reports nausea, Reports dry heaving today, reports diarrhea a couple of days ago but resolved. : No signs and/or symptoms were reported regarding the genitourinary system. EENT: No signs and/or symptoms were reported regarding the EENT system. Derm: Skin is pink, warm \T\ dry. Musculoskeletal: Range of motion: intact in all extremities. 09:52 Reassessment: Patient is alert, oriented x 3, equal unlabored respirations, skin aa5 warm/dry/pink. x-ray at bedside. . 10:30 Reassessment: Patient is alert, oriented x 3, equal unlabored respirations, skin aa5 warm/dry/pink. PA notified of pt's complaint of nausea not improving. . Pain: Pain currently is 6 out of 10 on a pain scale. GI: Reports nausea. 10:45 Reassessment: Patient is alert, oriented x 3, equal unlabored respirations, skin aa5 warm/dry/pink. Pain: Pain currently is 3 out of 10 on a pain scale. 12:00 Reassessment: Patient is alert, oriented x 3, equal unlabored respirations, skin aa5 warm/dry/pink. Reports nausea has not improved, PA was notified. . 12:15 Reassessment: Pt instructed to drink some water for PO challenge. . aa5 12:50 Reassessment: Patient is alert, oriented x 3, equal unlabored respirations, skin aa5 warm/dry/pink. Pt only ate a couple of ice chips, drank a couple of sips of water, and a couple of sips of suki mark (caffeine free), pt tolerated well, but states drinking made her nauseated and increased her abd pain. Pt states when she stops drinking her pain subsides and nausea subsides. PA was notified of findings. . 14:56 Reassessment: Patient is alert, oriented x 3, equal unlabored respirations, skin aa5 warm/dry/pink. Pt to CT . 16:24 Reassessment: Patient is alert, oriented x 3, equal unlabored respirations, skin aa5 warm/dry/pink. Pt tolerated GI cocktail well. . Vital Signs: 08:13 BP 110 / 58; Pulse 62; Resp 17; Temp 99.3(TE); Pulse Ox 99% on R/A; Height 5 ft. 3 in. ss (160.02 cm); Pain 6/10; 10:30 BP 100 / 59; Pulse 56; Resp 16 S; Pulse Ox 97% on R/A; aa5 11:04 BP 105 / 73; Pulse 67; Resp 14 S; Pulse Ox 96% on R/A; aa5 12:00 BP 95 / 63; Pulse 55; Resp 16; Pulse Ox 97% ; jl7 13:45 BP 105 / 55; Pulse 63; Resp 15; Pulse Ox 97% ; jl7 15:00 BP 103 / 58; Pulse 62; Resp 15; Pulse Ox 97% ; jl7 16:15 BP 103 / 64; Pulse 59; Resp 15; Pulse Ox 96% ; jl7 ED Course: 07:39 Patient arrived in ED. as 08:15 Triage completed. ss 08:15 Arm band placed on right wrist. ss 08:20 Mane Jacobo PA is PHCP. cp 08:20 Erasmo Garcia MD is Attending Physician. cp 08:50 Belén Anderson, RN is Primary Nurse. aa5 08:50 Patient has correct armband on for positive identification. Bed in low position. Call aa5 light in reach. Side rails up X2. Pulse ox on. NIBP on. 09:00 Initial lab(s) drawn, by pr, sent to lab. Inserted saline lock: 20 gauge in right aa5 antecubital area, using aseptic technique. Blood collected. 10:12 XRAY Chest (1 view) In Process Unspecified. EDMS 10:33 No provider procedures requiring assistance completed. aa5 14:25 Rocky Rudolph MD is Referral Physician. cp 15:03 CT Abd/Pelvis - IV Contrast Only In Process Unspecified. EDMS 15:52 Rocky Rudolph MD is Referral Physician. cp 16:36 IV discontinued, intact, bleeding controlled, No redness/swelling at site. Pressure jl7 dressing applied. Administered Medications: 09:05 Drug: Zofran (Ondansetron) 4 mg Route: IVP; Site: right antecubital; aa5 09:10 Follow up: Response: No adverse reaction aa5 09:05 Drug: morphine 2 mg Route: IV; Rate: calculated rate; Site: right antecubital; aa5 09:05 Drug: ProTONIX (pantoprazole) 40 mg Route: IVP; Site: right antecubital; aa5 09:10 Follow up: Response: No adverse reaction aa5 10:32 Drug: morphine 2 mg Route: IV; Rate: calculated rate; Site: right antecubital; aa5 10:40 Follow up: Response: No adverse reaction aa5 10:32 Drug: Zofran (Ondansetron) 4 mg Route: IVP; Site: right antecubital; aa5 10:40 Follow up: Response: No adverse reaction aa5 12:06 Drug: Phenergan (promethazine) 12.5 mg Route: IVP; Site: right antecubital; aa5 12:15 Follow up: Response: No adverse reaction aa5 14:56 Drug: Ativan (LORazepam) 0.5 mg Route: IVP; Site: right antecubital; aa5 15:00 Follow up: Response: No adverse reaction aa5 16:24 Drug: GI Cocktail without - (Maalox Suspension 30 ml, Lidocaine Liquid 2 % 15 aa5 ml) Route: PO; 16:37 Follow up: Response: Medication administered at discharge. jl7 Medication: 16:36 VIS not applicable for this client. jl7 Outcome: 14:25 Discharge ordered by MD. cp 15:53 Discharge ordered by MD. cp 16:36 Discharged to home via wheelchair, with family. jl7 16:36 Condition: stable 16:36 Discharge instructions given to patient, Instructed on discharge instructions, follow up and referral plans. medication usage, Demonstrated understanding of instructions, follow-up care, medications, Prescriptions given X 3. 16:37 Patient left the ED. jl7 Signatures: Dispatcher [employer] EDEden Lucia Audri, RN RN aa5 Elvia Eugene RN RN ss Page, Corey, PA PA Bridger Rondon RN RN jl7
--- NOTE | 2022-01-01 14:26 | EDPHYS ---
Physician Documentation [facility] Name: Anabel Coleman Age: 61 yrs Sex: Female : 1960 Arrival Date: 01/01/2022 Time: 07:39 Bed 8 Private MD: ED Physician Erasmo Garcia HPI: 01/01 08:50 This 61 yrs old Female presents to ER via Ambulatory with complaints of Vomiting. cp 08:50 The patient presents to the emergency department with nausea, with "dry heaves", cp vomiting, that is continuous, described as bilious. Onset: The symptoms/episode began/occurred yesterday. 08:50 Possible causes: unknown. The patient has been recently seen at the [facility] Emergency Department, yesterday, for similar complaints labs were performed, CT scan was performed. Historical: - Allergies: 08:15 Ciprofloxacin; ss 08:15 metronidazole; ss 11:30 Sulfa (Sulfonamide Antibiotics); aa5 - PMHx: 08:15 Hypertension; PTSD; ss - Immunization history:: Client reports receiving the 2nd dose of the Covid vaccine. - Social history:: Smoking status: Patient/guardian denies using tobacco, but has a distant history of tobacco abuse. ROS: 08:55 Constitutional: Positive for poor PO intake, Negative for body aches, chills, fever. cp 08:55 Eyes: Negative for injury, pain, redness, and discharge. cp 08:55 Cardiovascular: Negative for chest pain, edema, palpitations. 08:55 Respiratory: Negative for cough, shortness of breath, wheezing. 08:55 Abdomen/GI: Positive for abdominal pain, nausea and vomiting, anorexia, Negative for diarrhea, constipation, hematemesis, black/tarry stool, rectal bleeding. Exam: 09:00 Constitutional: The patient appears in no acute distress, alert, awake, cp non-diaphoretic, non-toxic, well developed, well nourished, uncomfortable. 09:00 Head/Face: Normocephalic, atraumatic. cp 09:00 Eyes: Periorbital structures: appear normal, Conjunctiva: normal, no exudate, no injection, Sclera: no appreciated abnormality, Lids and lashes: appear normal, bilaterally. 09:00 ENT: External ear(s): are unremarkable, Nose: is normal, Mouth: Lips: moist, Oral mucosa: pink and intact, moist, Posterior pharynx: Airway: no evidence of obstruction, patent. 09:00 Neck: ROM/movement: is normal, is supple, without pain, no range of motions limitations. 09:00 Chest/axilla: Inspection: normal, Palpation: is normal, no crepitus, no tenderness. 09:00 Cardiovascular: Rate: normal, Rhythm: regular, Edema: is not appreciated, JVD: is not appreciated. 09:00 Respiratory: the patient does not display signs of respiratory distress, Respirations: normal, no use of accessory muscles, no retractions, labored breathing, is not present, Breath sounds: are clear throughout, no decreased breath sounds, no stridor, no wheezing. 09:00 Abdomen/GI: Inspection: abdomen appears normal, Bowel sounds: active, all quadrants, Palpation: soft, in all quadrants, moderate abdominal tenderness, in the right lower quadrant and left lower quadrant, rebound tenderness, is not appreciated, voluntary guarding, is elicited in the right lower quadrant and left lower quadrant, involuntary guarding, is not appreciated. 09:00 Back: CVA tenderness, is absent. 09:00 Neuro: Orientation: to person, place \\T\\ time. Mentation: is normal, Motor: moves all fours, strength is normal. Vital Signs: 08:13 BP 110 / 58; Pulse 62; Resp 17; Temp 99.3(TE); Pulse Ox 99% on R/A; Height 5 ft. 3 in. ss (160.02 cm); Pain 6/10; 10:30 BP 100 / 59; Pulse 56; Resp 16 S; Pulse Ox 97% on R/A; aa5 11:04 BP 105 / 73; Pulse 67; Resp 14 S; Pulse Ox 96% on R/A; aa5 12:00 BP 95 / 63; Pulse 55; Resp 16; Pulse Ox 97% ; jl7 13:45 BP 105 / 55; Pulse 63; Resp 15; Pulse Ox 97% ; jl7 15:00 BP 103 / 58; Pulse 62; Resp 15; Pulse Ox 97% ; jl7 16:15 BP 103 / 64; Pulse 59; Resp 15; Pulse Ox 96% ; jl7 MDM: 08:41 Patient medically screened. cp 09:00 Differential diagnosis: Nonspecific abd pain, gastritis, appendicitis, diverticulitis, cp viral gastroenteritis, gastroenteritis. 15:52 Data reviewed: vital signs, nurses notes, lab test result(s), radiologic studies, CT cp scan. Counseling: I had a detailed discussion with the patient and/or guardian regarding: the historical points, exam findings, and any diagnostic results supporting the discharge/admit diagnosis, lab results, radiology results, to return to the emergency department if symptoms worsen or persist or if there are any questions or concerns that arise at home. Response to treatment: the patient's symptoms have markedly improved after treatment, and as a result, I will discharge patient. 01/01 08:42 Order name: CBC with Diff; Complete Time: 09:46 01/01 09:47 Interpretation: Normal except: WBC 17.7; JUANA% 88.6; LYM% 7.3; NEUT A 15.6. 01/01 08:42 Order name: CMP; Complete Time: 09:59 01/01 09:59 Interpretation: Normal except: CL 108; ANION GAP 11.7; GLUC 114; BUN 20; GFR 50; BILIT cp 1.2; GLOB 3.7; A/G 1.0. 01/01 08:42 Order name: Lipase; Complete Time: 09:59 01/01 08:42 Order name: Urine Microscopic Only; Complete Time: 09:46 01/01 09:47 Interpretation: Normal except: URBC 10-20; UBACT 20-50. 01/01 08:42 Order name: Magnesium; Complete Time: 09:59 01/01 09:07 Order name: Urine Dipstick-Ancillary; Complete Time: 09:46 [facility] 01/01 09:47 Interpretation: Normal except: UKET 4+; UBLD 2+; UPROT 1+. 01/01 09:24 Order name: Urine Culture EDMA 01/01 09:46 Order name: XRAY Chest (1 view); Complete Time: 10:54 01/01 10:55 Interpretation: Report review. 01/01 14:39 Order name: CT Abd/Pelvis - IV Contrast Only; Complete Time: 15:46 01/01 15:47 Interpretation: Report reviewed. 01/01 08:42 Order name: IV Saline Lock; Complete Time: 09:13 01/01 08:42 Order name: Labs collected and sent; Complete Time: 09:13 cp 01/01 08:42 Order name: Urine Dipstick-Ancillary (obtain specimen); Complete Time: 09:13 cp 01/01 12:48 Order name: PO challenge; Complete Time: 12:50 cp Administered Medications: 09:05 Drug: Zofran (Ondansetron) 4 mg Route: IVP; Site: right antecubital; aa5 09:10 Follow up: Response: No adverse reaction aa5 09:05 Drug: morphine 2 mg Route: IV; Rate: calculated rate; Site: right antecubital; aa5 09:05 Drug: ProTONIX (pantoprazole) 40 mg Route: IVP; Site: right antecubital; aa5 09:10 Follow up: Response: No adverse reaction aa5 10:32 Drug: morphine 2 mg Route: IV; Rate: calculated rate; Site: right antecubital; aa5 10:40 Follow up: Response: No adverse reaction aa5 10:32 Drug: Zofran (Ondansetron) 4 mg Route: IVP; Site: right antecubital; aa5 10:40 Follow up: Response: No adverse reaction aa5 12:06 Drug: Phenergan (promethazine) 12.5 mg Route: IVP; Site: right antecubital; aa5 12:15 Follow up: Response: No adverse reaction aa5 14:56 Drug: Ativan (LORazepam) 0.5 mg Route: IVP; Site: right antecubital; aa5 15:00 Follow up: Response: No adverse reaction aa5 16:24 Drug: GI Cocktail without - (Maalox Suspension 30 ml, Lidocaine Liquid 2 % 15 aa5 ml) Route: PO; 16:37 Follow up: Response: Medication administered at discharge. jl7 Disposition: 18:41 Co-signature as Attending Physician, Erasmo Garcia MD I agree with the assessment and kdr plan of care. Disposition Summary: 01/01/22 15:53 Discharge Ordered Location: Home(01/01/22 15:53) cp Condition: Stable(01/01/22 15:53) cp Diagnosis - Nausea with vomiting, unspecified(01/01/22 15:53) cp Followup: cp - With: Rocky Rudolph MD - When: 1 - 2 days - Reason: Recheck today's complaints Discharge Instructions: - Discharge Summary Sheet cp - Nausea and Vomiting, Adult cp Forms: - Medication Reconciliation Form cp - Thank You Letter cp - Antibiotic Education cp - Prescription Opioid Use cp Prescriptions: - promethazine 25 mg Rectal suppository - insert 1 suppository by RECTAL route every 6 hours; 12 suppository; Refills: 0, cp Product Selection Permitted - Pepcid 20 mg Oral Tablet - take 1 tablet by ORAL route every 12 hours for 10 days; 20 tablet; Refills: 0, cp Product Selection Permitted - promethazine 25 mg Oral Tablet - take 1 tablet by ORAL route every 6 hours As needed; 20 tablet; Refills: 0, cp Product Selection Permitted Signatures: Dispatcher [employer] EDMS Erasmo Garcia MD MD kdr Calderon, Audri, RN RN aa5 Elvia Eugene RN RN ss Mane Jacobo, JF PA Bridger Rondon RN jl7 Corrections: (The following items were deleted from the chart) 14:35 11:11 Fluid Challenge ordered. cp aa5 14:42 14:25 Home cp cp 14:42 14:25 an ongoing problem cp cp 14:42 14:25 have improved cp cp 14:42 14:25 Stable cp cp 14:42 14:25 Nausea with vomiting, unspecified cp cp
[2022-01-01] MEDS ORDERED: LORazepam 2 MG/ML VIAL ONE (14:57)
--- NOTE | 2022-01-01 15:35 | RAD REPORT ---
EXAM DESCRIPTION: CTAbdomen Pelvis W Contrast - 01/01/2022 3:01 pm CLINICAL HISTORY: Abdominal pain, acute, nonlocalized COMPARISON: Abdomen Pelvis W Contrast dated 12/31/2021; CT ABD PELVIS W CONTRAST dated 03/13/2014 TECHNIQUE: CT of the abdomen and pelvis was performed. All CT scans are performed using dose optimization technique as appropriate and may include automated exposure control or mA/KV adjustment according to patient size. FINDINGS: Lower chest: No acute abnormality. Small hiatal hernia. Mild thickened distal esophagus co uld reflect esophagitis. This is unchanged. . Liver: No acute abnormality or suspicious lesions. Biliary: Intrahepatic and extrahepatic biliary duct dilatation is likely related to the postcholecyst ectomy state and is unchanged. Cholecystectomy. Stomach: No significant focal abnormality. Duodenum: No significant focal abnormality. Pancreas: No significant abnormality. Spleen: No significant abnormality. Adrenal: No suspicious lesions. Kidney/ureter: No hydronephrosis. No renal calculi. Too small to characterize and/or benign appearing renal lesions are noted. Retroperitoneum: No retroperitoneal adenopathy. Vascular: No aneurysm. Bowel: No significant focal abnormality. Normal appendix. Peritoneum: No ascites or free air. Bladder: Grossly unremarkable. Reproductive: No adnexal masses. Probable uterine fibroid. Bones: No acute fracture. Other: n/a IMPRESSION: No acute intra-abdominal or pelvic finding. No significant change compared with 01/01/20 22.
[2022-01-01] MEDS ORDERED: MAGNES/ALUMIN/SIMET 30ML UCUP ONE (16:27)
[2022-01-01] MEDS ORDERED: LIDOCAINE VISCOUS 2% SOLN 15 ML UDC ONE (16:27)
[2022-01-01 17:05] VITALS: TEMP 99.3
[2022-01-01 17:09] VITALS: BP 105/73; O2SAT 96
== END 2022-01-01 16:37 | disposition home or self-care (01) ==
LOC: ER 07:39
DX: R11.2 Nausea with vomiting, unspecified (principal); R10.30 Lower abdominal pain, unspecified; I10 Essential (primary) hypertension; F43.10 Post-traumatic stress disorder, unspecified; Z88.1 Allergy status to other antibiotic agents; Z88.2 Allergy status to sulfonamides; Z88.8 Allergy status to other drugs, medicaments and biological substances
CPT/HCPCS: 87088; 85025; 87086; 36415; 83735; 83690; 80053; 74177; 71045; 96375; 96374; 99284; Q9967; J2550; C9113; J2270 ×2; J2405 ×2; 81003; 81015

== ENCOUNTER 2022-01-03 08:30 | Inpatient (IN) | payer OTHER ==
--- OUTSIDE RECORDS SUMMARY | 2022-01-03 08:33 | XMS REPORT | Continuity of Care Document ---
:1960 Author Organization [facility] t Address [address] [place] [address] Care Team Providers Name Role Phone Naveed [...] rs active active ity of problems problems [facility] Allergies, Adverse Reactions, Alerts Allergy Allergy Status Severity Reaction(s) Onset Inactive Treating Comm ents Source Name Type Date Date Clinician NO KNOWN Drug Active [facility] ALLERGIE Class ity of S [facility] Social History Social Habit Start Date Stop Date Quantity Comments Source Exposure to Not sure [facility] SARS-CoV-2 (event) [facility] Sex Assigned At [birth year] [facility] 00:00:00 00:00:00 [facility] Smoking Status Start Date Stop Date Source Unknown if ever smoked [facility] Medications Ordered Filled Start Stop Current Ordering Indication Dosage Frequency Signature Comments Components Source Medication Medication Date Date Medication? Clinician (SIG) Name Name No known 2020-08 No [facility] medications 2-08 ity of 10:12: [address] No known 2020-08 No [facility] medications 2-08 ity of 10:12: [address] Immunizations Ordered Filled Immunization Date Status Comments Sour e Immunization Name Name SARS-COV-2 COVID-19 2020-12-07 Completed Unive rsity of PFIZER VACCINE 00:00:00 [facility] SARS-COV-2 COVID-19 2020-12-07 Completed Unive rsity of PFIZER VACCINE 00:00:00 [facility] SARS-COV-2 COVID-19 2020-11-17 Completed Unive rsity of PFIZER VACCINE 00:00:00 [facility] SARS-COV-2 COVID-19 2020-11-17 Completed Unive rsity of PFIZER VACCINE 00:00:00 [facility] Vital Signs Vital Name Observation Time Observation Value Comments Source Systolic blood 2021-07-10 16:17:00 109 mm[Hg] Univer sity of pressure [facility] Diastolic blood 2021-07-10 16:17:00 69 mm[Hg] Unive rsity of pressure [facility] Heart rate 2021-07-10 16:17:00 64 /min [facility] Body temperature 2021-07-10 16:17:00 36.06 [facility] Respiratory rate 2021-07-10 16:17:00 18 /min [facility] Body height 2021-07-10 16:17:00 160 cm [facility] Body weight 2021-07-10 16:17:00 59.966 kg [facility] BMI 2021-07-10 16:17:00 23.42 kg/m2 [facility] Oxygen saturation in 2021-07-10 16:17:00 97 /min [facility] Arterial blood by [facility] Pulse oximetry Branch Procedures This patient has no known procedures. Encounters Start End Encounter Admission Attending Care Care Encounter Source Date/Time Date/Time Type Type Clinicians Facility Department ID 2021-07-10 2021-07-10 Office Ab NYSKYLER [id number] [facility] 10:07:23 10:27:23 Visit Audie LISA [id number] Yousuf [id number] Lionel MARIO [id number] In dical NAL 085 [facility] 2021-07-10 2021-07-10 Outpatient R AUDIE BERGER [facility] [id number] [facility] 10:00:00 10:00:00 AUDIE BERGER [facility] Results This patient has no known results.
[2022-01-03 09:55] LABS: Absolute Lymphocytes (CBC) 1.2 K/uL (0.7-4.9); Hematocrit 39.8 % (36.0-45.0); Lymphocytes % 18.1 % (15.3-44.8); MPV 8.3 fL (7.6-11.3)
--- NOTE | 2022-01-03 09:56 | RAD REPORT ---
EXAM DESCRIPTION: RAD - Chest Single View - 01/03/2022 9:44 am CLINICAL HISTORY: COUGH COMPARISON: Portable 01/01/2022 TECHNIQUE: AP portable chest image was obtained 01/03/2022 9:44 am . FINDINGS: Lungs are clear. Interstitial pattern matches comparison. Heart and vasculature are normal . No measurable pleural effusion and no pneumothorax. No acute bony abnormality seen. No acute aortic findings suspected. IMPRESSION: No acute cardiopulmonary process. No significant change from comparison study.
--- NOTE | 2022-01-03 10:04 | EDPHYS ---
Physician Documentation [facility] Name: Anabel Coleman Age: 61 yrs Sex: Female : 1960 Arrival Date: 01/03/2022 Time: 08:32 Bed 14 Private MD: JU Physician Mane Loza HPI: 01/03 09:15 This 61 yrs old Female presents to ER via Wheelchair with complaints of nii Nausea/Vomiting/Diarrhea. 09:15 The patient presents to the emergency department with nausea, vomiting, abdominal pain, nii of the right upper quadrant, left upper quadrant, right lower quadrant and left lower quadrant. Onset: The symptoms/episode began/occurred 5 day(s) ago. Possible causes: unknown. The symptoms are aggravated by nothing. The symptoms are alleviated by nothing. Associated signs and symptoms: Pertinent positives: abdominal pain, anorexia, nausea, vomiting. Severity of symptoms: At their worst the symptoms were moderate in the emergency department the symptoms are unchanged. The patient has experienced similar episodes in the past, a few times. Historical: - Allergies: 08:41 Ciprofloxacin; vg1 08:41 metronidazole; vg1 08:41 Sulfa (Sulfonamide Antibiotics); vg1 - Home Meds: 08:41 Bupropion Oral [Active]; Buspirone Oral [Active]; gabapentin Oral [Active]; Trazodone vg1 Oral [Active]; - PMHx: 08:41 Hypertension; PTSD; vg1 - Immunization history:: Client reports receiving the 2nd dose of the Covid vaccine. - Social history:: Smoking status: Patient/guardian denies using tobacco, the patient reports quitting approximately 8 years ago. ROS: 09:16 Constitutional: Negative for fever, chills, and weight loss, Eyes: Negative for injury, nii pain, redness, and discharge, ENT: Negative for injury, pain, and discharge, Neck: Negative for injury, pain, and swelling, Cardiovascular: Negative for chest pain, palpitations, and edema, Respiratory: Negative for shortness of breath, cough, wheezing, and pleuritic chest pain, Back: Negative for injury and pain, : Negative for injury, bleeding, discharge, and swelling, MS/Extremity: Negative for injury and deformity, Skin: Negative for injury, rash, and discoloration, Neuro: Negative for headache, weakness, numbness, tingling, and seizure, Psych: Negative for depression, anxiety, suicide ideation, homicidal ideation, and hallucinations, Allergy/Immunology: Negative for hives, rash, and allergies, Endocrine: Negative for neck swelling, polydipsia, polyuria, polyphagia, and marked weight changes, Hematologic/Lymphatic: Negative for swollen nodes, abnormal bleeding, and unusual bruising. 09:16 Abdomen/GI: Positive for abdominal pain, nausea and vomiting. Exam: 09:16 Constitutional: This is a well developed, well nourished patient who is awake, alert, nii and in no acute distress. Head/Face: Normocephalic, atraumatic. Eyes: Pupils equal round and reactive to light, extra-ocular motions intact. Lids and lashes normal. Conjunctiva and sclera are non-icteric and not injected. Cornea within normal limits. Periorbital areas with no swelling, redness, or edema. ENT: Nares patent. No nasal discharge, no septal abnormalities noted. Tympanic membranes are normal and external auditory canals are clear. Oropharynx with no redness, swelling, or masses, exudates, or evidence of obstruction, uvula midline. Mucous membranes moist. Neck: Trachea midline, no thyromegaly or masses palpated, and no cervical lymphadenopathy. Supple, full range of motion without nuchal rigidity, or vertebral point tenderness. No Meningismus. Chest/axilla: Normal chest wall appearance and motion. Nontender with no deformity. No lesions are appreciated. Cardiovascular: Regular rate and rhythm with a normal S1 and S2. No gallops, murmurs, or rubs. Normal PMI, no JVD. No pulse deficits. Respiratory: Lungs have equal breath sounds bilaterally, clear to auscultation and percussion. No rales, rhonchi or wheezes noted. No increased work of breathing, no retractions or nasal flaring. Back: No spinal tenderness. No costovertebral tenderness. Full range of motion. Female : Normal external genitalia. Skin: Warm, dry with normal turgor. Normal color with no rashes, no lesions, and no evidence of cellulitis. MS/ Extremity: Pulses equal, no cyanosis. Neurovascular intact. Full, normal range of motion. Neuro: Awake and alert, GCS 15, oriented to person, place, time, and situation. Cranial nerves II-XII grossly intact. Motor strength 5/5 in all extremities. Sensory grossly intact. Cerebellar exam normal. Normal gait. Psych: Awake, alert, with orientation to person, place and time. Behavior, mood, and affect are within normal limits. 09:16 Abdomen/GI: Inspection: abdomen appears normal, Bowel sounds: normal, Palpation: mild abdominal tenderness, in all quadrants, Liver: no appreciated palpable abnormalities, Hernia: not appreciated. 09:45 ECG was reviewed by the Attending Physician. [facility] Vital Signs: 08:37 BP 120 / 68; Pulse 63; Resp 20; Temp 98.6(O); Pulse Ox 100% on R/A; Weight 57.15 kg; vg1 Height 5 ft. 3 in. (160.02 cm); Pain 8/10; 11:25 BP 95 / 77; Pulse 57; Pulse Ox 100% on R/A; ap3 14:11 BP 111 / 66; Pulse 66; Pulse Ox 99% on R/A; ap3 08:37 Body Mass Index 22.32 (57.15 kg, 160.02 cm) vg1 MDM: 08:43 Patient medically screened. nii 09:24 Differential diagnosis: Nonspecific abd pain, gastritis, pancreatitis, appendicitis, nii diverticulitis, viral gastroenteritis, gastroenteritis. Data reviewed: vital signs, nurses notes, lab test result(s), EKG, radiologic studies, CT scan, plain films. Data interpreted: engine monitor: rate is 63 beats/min, rhythm is regular, Pulse oximetry: on room air is 100 %. Test interpretation: by ED physician or midlevel provider: ECG, plain radiologic studies. Counseling: I had a detailed discussion with the patient and/or guardian regarding: the historical points, exam findings, and any diagnostic results supporting the discharge/admit diagnosis, lab results, radiology results, the need for further work-up and treatment in the hospital. 01/03 09:04 Order name: Basic Metabolic Panel; Complete Time: 10:[address] [facility] 01/03 09:04 Order name: CBC with Diff; Complete Time: 09:[address] [facility] 01/03 09:04 Order name: LFT's; Complete Time: 10:[address] [facility] 01/03 09:04 Order name: Magnesium; Complete Time: 10:[address] [facility] 01/03 09:04 Order name: NT PRO-BNP; Complete Time: 10:[address] [facility] 01/03 09:04 Order name: PT-INR; Complete Time: 10:[address] [facility] 01/03 09:04 Order name: Troponin HS; Complete Time: 10:[address] [facility] 01/03 09:04 Order name: Lipase; Complete Time: 10:[address] [facility] 01/03 09:04 Order name: Urine Culture [facility] 01/03 09:04 Order name: SARS-COV-2 RT PCR (Document "Date of Onset" if Symptomatic) [facility] 01/03 10:20 Order name: CBC with Automated Diff EDMS 01/03 10:20 Order name: CBC with Automated Diff EDMS 01/03 10:20 Order name: Comprehensive Metabolic Panel EDMS 01/03 10:20 Order name: Comprehensive Metabolic Panel EDMS 01/03 09:04 Order name: XRAY Chest (1 view); Complete Time: 09:[address] [facility] 01/03 09:04 Order name: EKG; Complete Time: 09:[address] [facility] 01/03 09:04 Order name: Cardiac monitoring; Complete Time: 09:[address] [facility] 01/03 09:04 Order name: EKG - Nurse/Tech; Complete Time: 19:[address] [facility] 01/03 09:04 Order name: IV Saline Lock; Complete Time: 09:[address] [facility] 01/03 09:04 Order name: Labs collected and sent; Complete Time: 09:[address] [facility] 01/03 09:04 Order name: O2 Per Protocol; Complete Time: 09:[address] [facility] 01/03 09:04 Order name: O2 Sat Monitoring; Complete Time: 09:[address] [facility] 01/03 10:20 Order name: Clear Liquid EDMS EC:45 Rate is 53 beats/min. Rhythm is regular. QRS [place] is Normal. ND interval is normal. QRS nii interval is normal. QT interval is normal. No Q waves. T waves are Normal. No ST changes noted. Clinical impression: Sinus bradycardia and No evidence of ischemia. Interpreted by me. Reviewed by me. Administered Medications: 09:28 Drug: Zofran (Ondansetron) 4 mg Route: IVP; Site: right antecubital; ap3 10:28 Follow up: Response: No adverse reaction ap3 09:28 Drug: morphine 2 mg Route: IV; Rate: per protocol; Site: right antecubital; ap3 10:28 Follow up: Response: No adverse reaction; Pain is decreased ap3 09:29 Drug: NS 0.9% 1000 ml Route: IV; Rate: 1 bolus; Site: right antecubital; ap3 11:25 Follow up: Response: No adverse reaction; IV Status: Completed infusion ap3 09:29 Drug: ProTONIX (pantoprazole) 40 mg Route: IVP; Site: right antecubital; ap3 10:28 Follow up: Response: No adverse reaction ap3 10:12 Drug: Ativan (LORazepam) 1 mg Route: IVP; Site: right antecubital; ap3 10:55 Follow up: Response: No adverse reaction ap3 11:25 Follow up: Response: No adverse reaction ap3 11:06 Drug: Lactated Ringers Solution 1000 ml Route: IV; Rate: 150 ml/hr; Site: right ap3 antecubital; Disposition Summary: 01/03/22 10:04 Hospitalization Ordered Hospitalization Status: Observation nii Provider: Prasanth Camargo cha Location: Telemetry/MedSurg (observation) nii Condition: Fair nii Problem: new nii Symptoms: have improved nii Bed/Room Type: Standard nii Room Assignment: 409(01/03/22 19:00) dw Diagnosis - Anxiety disorder, unspecified nii - Vomiting nii - Cyclical vomiting, intractable nii - Hypokalemia nii Forms: - Medication Reconciliation Form nii - SBAR form nii Signatures: Dispatcher [employer] Katelynn Hebert RN RN Mane Velarde MD MD cha Prokisch, Amanda, RN RN ap3 Clementine Collins RN RN vg1 Corrections: (The following items were deleted from the chart) 19:00 10:04 nii dw
--- NOTE | 2022-01-03 10:04 | ER ---
Nurse's Notes [facility] Name: Anabel Coleman Age: 61 yrs Sex: Female : 1960 Arrival Date: 01/03/2022 Time: 08:32 Bed 14 Private MD: Diagnosis: Anxiety disorder, unspecified;Vomiting;Cyclical vomiting, intractable;Hypokalemia Presentation: 01/03 08:37 Chief complaint: Patient states: NVD since ThursdayDecember 27 night with Epigastric pain. vg1 Coronavirus screen: Vaccine status: Patient reports receiving the 2nd dose of the covid vaccine. Client denies travel out of the [place] in the last 14 days. Ebola Screen: Patient denies exposure to infectious person. Patient denies travel to an Ebola-affected area in the 21 days before illness onset. Initial Sepsis Screen: Does the patient meet any 2 criteria? No. Patient's initial sepsis screen is negative. Does the patient have a suspected source of infection? No. Patient's initial sepsis screen is negative. Risk Assessment: Do you want to hurt yourself or someone else? Patient reports no desire to harm self or others. Onset of symptoms was December 27, 2021. 08:37 Method Of Arrival: Wheelchair vg1 08:37 Acuity: [place] 3 vg1 Triage Assessment: 08:41 General: Appears uncomfortable, Behavior is calm, cooperative. Pain: Complains of pain vg1 in epigastric area. GI: Reports nausea, vomiting. Historical: - Allergies: 08:41 Ciprofloxacin; vg1 08:41 metronidazole; vg1 08:41 Sulfa (Sulfonamide Antibiotics); vg1 - Home Meds: 08:41 Bupropion Oral [Active]; Buspirone Oral [Active]; gabapentin Oral [Active]; Trazodone vg1 Oral [Active]; - PMHx: 08:41 Hypertension; PTSD; vg1 - Immunization history:: Client reports receiving the 2nd dose of the Covid vaccine. - Social history:: Smoking status: Patient/guardian denies using tobacco, the patient reports quitting approximately 8 years ago. Screenin:12 Abuse screen: Denies threats or abuse. Nutritional screening: Has had N/V for 3 or more ap3 days. Tuberculosis screening: No symptoms or risk factors identified. Fall Risk No fall in past 12 months (0 pts). Secondary diagnosis (15 points) IV access (20 points). Ambulatory Aid- None/Bed Rest/Nurse Assist (0 pts). Gait- Weak (10 pts.). Mental Status- Oriented to own ability (0 pts). Total Whitt Fall Scale indicates Low Risk Score (25-44 pts). Fall prevention measures have been instituted. Side Rails Up X 2 Placed close to Nursing Station Frequent Obs/Assesments occuring As available Patient and Family Educated on Fall Prevention Program and strategies. Assessment: 10:28 Reassessment: Patient and/or family updated on plan of care and expected duration. Pain ap3 level reassessed. Patient is alert, oriented x 3, equal unlabored respirations, skin warm/dry/pink. 18:22 GI: Abdomen is flat. ap3 Vital Signs: 08:37 BP 120 / 68; Pulse 63; Resp 20; Temp 98.6(O); Pulse Ox 100% on R/A; Weight 57.15 kg; vg1 Height 5 ft. 3 in. (160.02 cm); Pain 8/10; 11:25 BP 95 / 77; Pulse 57; Pulse Ox 100% on R/A; ap3 14:11 BP 111 / 66; Pulse 66; Pulse Ox 99% on R/A; ap3 08:37 Body Mass Index 22.32 (57.15 kg, 160.02 cm) vg1 ED Course: 08:32 Patient arrived in ED. rg4 08:41 Triage completed. vg1 08:41 Arm band placed on. vg1 08:43 Mane Loza MD is Attending Physician. nii 08:56 Joya Langley, JULIETTE is Primary Nurse. ap3 09:28 Inserted saline lock: 20 gauge in right antecubital area, using aseptic technique. ap3 Blood collected. 09:46 XRAY Chest (1 view) In Process Unspecified. EDMS 10:03 Prasanth Camargo MD is Hospitalizing Provider. nii 10:12 Patient has correct armband on for positive identification. Bed in low position. Call ap3 light in reach. Side rails up X2. case monitor on. Pulse ox on. NIBP on. Door closed. Noise minimized. 18:22 No provider procedures requiring assistance completed. Patient admitted, IV remains in ap3 place. Administered Medications: 09:28 Drug: Zofran (Ondansetron) 4 mg Route: IVP; Site: right antecubital; ap3 10:28 Follow up: Response: No adverse reaction ap3 09:28 Drug: morphine 2 mg Route: IV; Rate: per protocol; Site: right antecubital; ap3 10:28 Follow up: Response: No adverse reaction; Pain is decreased ap3 09:29 Drug: NS 0.9% 1000 ml Route: IV; Rate: 1 bolus; Site: right antecubital; ap3 11:25 Follow up: Response: No adverse reaction; IV Status: Completed infusion ap3 09:29 Drug: ProTONIX (pantoprazole) 40 mg Route: IVP; Site: right antecubital; ap3 10:28 Follow up: Response: No adverse reaction ap3 10:12 Drug: Ativan (LORazepam) 1 mg Route: IVP; Site: right antecubital; ap3 10:55 Follow up: Response: No adverse reaction ap3 11:25 Follow up: Response: No adverse reaction ap3 11:06 Drug: Lactated Ringers Solution 1000 ml Route: IV; Rate: 150 ml/hr; Site: right ap3 antecubital; Medication: 10:12 VIS not applicable for this client. ap3 Outcome: 10:04 Decision to Hospitalize by Provider. nii 18:22 Admitted to ER Hold. Please see [facility] for further documentation. ap3 18:22 Condition: stable 18:22 Discharge instructions given to patient, Instructed on the need for admit, Demonstrated understanding of instructions. 21:25 Patient left the ED. bb Signatures: Dispatcher [employer] Mane Ely MD MD cha Ballard, Brenda, RN RN Gisel Rodrigues4 Joya Langley RN RN ap3 Clementine Collins RN RN vg1
[2022-01-03 10:05] LABS: Albumin 3.6 g/dL (3.4-5.0); Bilirubin Direct 0.4 mg/dL (0-0.2); Bilirubin Total 0.9 mg/dL (0.2-1.0); Magnesium 2.6 mg/dL (1.8-2.4); Potassium 3.2 mmol/L (3.5-5.1); Protein, Total 7.3 g/dL (6.4-8.2); Troponin High Sensitivity 13.5 pg/mL (<58.9)
[2022-01-03] MEDS ORDERED: ACETAMINOPHEN 500 MG TAB PO PRN (10:14)
[2022-01-03] MEDS ORDERED: LORazepam 2 MG/ML VIAL ONE (10:15)
[2022-01-03 10:20] LABS: Protime INR 1.2
[2022-01-03] MEDS ORDERED: Ringers Lactate 1,000 ML IV ONE (11:07)
[2022-01-03] MEDS: clonazePAM 0.5 MG TAB PO SCH ×2 (14:00→21:26)
[2022-01-03 18:00] VITALS: BMI 22.2
[2022-01-03] MEDS: ONDANSETRON 4 MG/2 ML VIAL IV PRN ×2 (18:06→21:36)
[2022-01-03] MEDS ORDERED: ONDANSETRON 4 MG/2 ML VIAL ONE (18:15)
[2022-01-03] MEDS: NA CHLORIDE 0.9% 1,000 ML IV SCH ×2 (21:00→21:24)
[2022-01-04] MEDS: ONDANSETRON 4 MG/2 ML VIAL IV PRN ×4 (02:32→16:57)
[2022-01-04] MEDS: MORPHINE 2 MG/ML SYR IV PRN ×2 (03:59→16:57)
[2022-01-04] MEDS: NA CHLORIDE 0.9% 1,000 ML IV SCH ×3 (04:53→17:00)
[2022-01-04 06:34] LABS: Absolute Lymphocytes (CBC) 2.2 K/uL (0.7-4.9); Hematocrit 32.3 % (36.0-45.0); MPV 7.7 fL (7.6-11.3); RBC Red Blood Cell Count 3.57 M/uL (3.86-4.86)
[2022-01-04 06:47] LABS: Albumin 2.8 g/dL (3.4-5.0); Bilirubin Total 0.9 mg/dL (0.2-1.0); Potassium 3.3 mmol/L (3.5-5.1); Protein, Total 5.7 g/dL (6.4-8.2)
[2022-01-04] MEDS: clonazePAM 0.5 MG TAB PO SCH ×3 (08:37→21:09)
[2022-01-04] MEDS: KCL 20 MEQ/100 mL IVPB 20 MEQ/100 ML BAG IV SCH ×2 (11:23→13:49)
[2022-01-04 15:20] LABS: Urine Appearance Clear (Clear); Urine Bilirubin Negative (Negative); Urine Blood 1+ (Negative); Urine Color Yellow (Yellow); Urine Glucose Negative (Negative); Urine Protein Negative (Negative); Urine Specific Gravity 1.015 (1.005-1.030); Urine pH 6.5 (5.0-7.0)
[2022-01-04 15:34] LABS: Urine Microscopic Reflex ORDER UMIC
[2022-01-04 17:08] LABS: Urine Bacteria <20 /HPF (<20); Urine RBC <5 /HPF (NONE SEEN)
[2022-01-05] MEDS: KCL 20 MEQ/100 mL IVPB 20 MEQ/100 ML BAG IV SCH ×2 (00:06→01:41)
[2022-01-05] MEDS: NA CHLORIDE 0.9% 1,000 ML IV SCH ×3 (00:06→22:56)
[2022-01-05] MEDS: ONDANSETRON 4 MG/2 ML VIAL IV PRN ×2 (03:36→08:09)
[2022-01-05] MEDS: clonazePAM 0.5 MG TAB PO SCH ×3 (08:09→19:59)
[2022-01-05] MEDS ORDERED: POTASSIUM CL SA 10 MEQ TAB PO ONE (13:30)
--- NOTE | 2022-01-05 18:00 | RAD REPORT ---
EXAM DESCRIPTION: CTAbdomen Pelvis W Contrast - 01/05/2022 5:54 pm CLINICAL HISTORY: Abdominal pain. nausea and vomiting COMPARISON: Abdomen Pelvis W Contrast dated 01/01/2022; Abdomen Pelvis W Contrast dated 12/31/2021; CT ABD PELVIS W CONTRAST dated 03/13/2014 TECHNIQUE: Biphasic CT imaging of the abdomen and pelvis was performed with 100 ml non-ionic IV cont rast. All CT scans are performed using dose optimization technique as appropriate and may include automated exposure control or mA/KV adjustment according to patient size. FINDINGS: The lung bases are clear.Cholecystectomy clips. The liver, spleen, pancreas, adrenal glands and kidneys are within normal limits. No bowel obstruction, free air, free fluid or abscess. The appendix is normal. No evidence of signi ficant lymphadenopathy. No suspicious bony findings. IMPRESSION: No acute intra-abdominal or pelvic finding.
--- NOTE | 2022-01-06 00:56 | P.HP ---
Certification for Inpatient Patient admitted to: Inpatient With expected LOS: >2 Midnights Patient will require the following post-hospital care: None Practitioner: I am a practitioner with admitting privileges, knowledge of patient current condition, hospital course, and medical plan of care. Services: Services provided to patient in accordance with Admission requirements found in Title 42 Section 412.3 of the Code of Federal Regulations Patient History Date of Service: 01/03/22 Reason for admission: Abdominal pain; intractable nausea and vomiting. History of Present Illness: Patient is a 61-year-old female who comes to the hospital with abdominal pain along with intractable nausea vomiting. Pain was mainly in the right upper quadrant. Imaging studies were unremarkable. Enzyme levels were unremarkable. However, patient has lost about 20 pounds over the last couple of weeks. She is not really feeling better and she is very lethargic. She is resting comfortably at this time but she will be admitted for further work-up. Initially keep her under observation and if she tolerates diet in the morning that anticipate discharge home. Allergies milk Adverse Reaction (Mild, Verified 01/04/22 05:52) Nausea/Vomiting ciprofloxacin Adverse Reaction (Verified 01/04/22 05:52) Hives/Rash metronidazole [From Flagyl] Adverse Reaction (Verified 01/04/22 05:52) Hives/Rash Home Medications: Bupropion *Xl* [Wellbutrin XL*] 300 mg PO TID 01/25/14 Buspirone HCl [Buspar*] 30 mg PO DAILY 12/24/20 Calcium Citrate 200 mg PO DAILY 12/24/20 Gabapentin 300 mg PO TID 12/24/20 Multivitamin 1 each PO DAILY 12/24/20 - Past Medical/Surgical History Has patient received pneumonia vaccine in the past: No Diabetic: No -: Anxiety -: PTSD -: Csection -: Tubal ligation - Family History Father Family History: Reviewed- Non-Contributory - Social History Smoking Status: Unknown if ever smoked Alcohol use: No CD- Drugs: No Caffeine use: Yes Place of Residence: Home Review of Systems 10-point ROS is otherwise unremarkable Physical Examination - Vital Signs Temperature: 97.2 F Blood Pressure: 113/60 Pulse: 52 Respirations: 19 Pulse Ox (%): 97 - Physical Exam General: Alert, In no apparent distress, Oriented x3 HEENT: Atraumatic, PERRLA, Mucous membr. moist/pink, EOMI, Sclerae nonicteric Neck: Supple, 2+ carotid pulse no bruit, No LAD, Without JVD or thyroid abnormality Respiratory: Clear to auscultation bilaterally, Normal air movement Cardiovascular: Regular rate/rhythm, Normal S1 S2 Gastrointestinal: Soft and benign, Non-distended, No rebound, No guarding, Tenderness Musculoskeletal: No clubbing, No swelling, No tenderness Integumentary: No rashes Neurological: Normal gait, Normal speech, Normal strength at 5/5 x4 extr, Normal tone, Normal affect Lymphatics: No axilla or inguinal lymphadenopathy Assessment & Plan - Problems (Diagnosis) (1) Abdominal pain Current Visit: No Status: Acute (2) Acute cholecystitis Current Visit: No Status: Acute - Plan Plan: 1. IV fluids 2. Antiemetics 3. Monitor renal function 4. May need further imaging studies if symptoms do not improve 5. Out of bed and ambulate 6. GI DVT prophylaxis Discharge Plan: Home Plan to discharge in: Greater than 2 days - Advance Directives Does patient have a Living Will: No Does patient have a Durable POA for Healthcare: No - Code Status/Comfort Care Code Status Assessed: Yes Code Status: Full Code Critical Care: No Time Spent Managing PTS Care (In Minutes): 45
--- NOTE | 2022-01-06 00:59 | P.PN ---
Subjective Date of Service: 01/04/22 Patient is very lethargic and tearful. She is upset that her bladder is not able to care for herself. She is not eating anything and not keeping any food down. She is lost quite a bit of weight and will do further imaging study in the morning. Review of Systems 10-point ROS is otherwise unremarkable Physical Examination - Vital Signs Temperature: 97.2 F Blood Pressure: 113/60 Pulse: 52 Respirations: 19 Pulse Ox (%): 97 - Physical Exam General: Alert, In no apparent distress, Oriented x3 HEENT: Atraumatic, PERRLA, EOMI Neck: Supple, JVD not distended Respiratory: Clear to auscultation bilaterally, Normal air movement Cardiovascular: Regular rate/rhythm, Normal S1 S2, No murmurs Gastrointestinal: Normal bowel sounds, Soft and benign, Non-distended, No tenderness Musculoskeletal: No clubbing, No swelling, No tenderness Neurological: Normal speech, Normal tone, Normal affect Lymphatics: No axilla or inguinal lymphadenopathy - Studies Medications List Reviewed: Yes Assessment & Plan - Problems (Diagnosis) (1) Abdominal pain Current Visit: No Status: Acute (2) Intractable nausea and vomiting Current Visit: Yes Status: Acute - Plan Plan: Continue plan of care as mentioned below: 1. IV fluids 2. Antiemetics 3. Monitor renal function 4. CT scan pending 5. Out of bed and ambulate 6. GI DVT prophylaxis Discharge Plan: Home Plan to discharge in: Greater than 2 days - Advance Directives Does patient have a Living Will: No Does patient have a Durable POA for Healthcare: No - Code Status/Comfort Care Code Status: Full Code Critical Care: No Time Spent Managing PTS Care (In Minutes): 35
--- NOTE | 2022-01-06 01:00 | P.PN ---
Date of Service: 01/05/22 Subjective Patient appears to be doing much better. Not as tearful. She is interacting much better. She still having nausea and vomiting so we will do a CT imaging study this morning. Review of Systems 10-point ROS is otherwise unremarkable Physical Examination - Vital Signs Reviewed - Physical Exam General: Alert, In no apparent distress, Oriented x3 Respiratory: Clear to auscultation bilaterally, Normal air movement Cardiovascular: Regular rate/rhythm, Normal S1 S2, No murmurs Gastrointestinal: Normal bowel sounds, Soft and benign, Non-distended, No tenderness Musculoskeletal: No clubbing, No swelling, No tenderness Neurological: Normal speech, Normal tone, Normal affect Assessment & Plan - Problems (Diagnosis) (1) Abdominal pain Current Visit: No Status: Acute (2) Intractable nausea and vomiting Current Visit: Yes Status: Acute - Plan Continue plan of care as mentioned below: 1. At this time we will continue with IV fluids 2. antiemetics 3. Monitor renal function 4. CT scan pending 5. Out of bed and ambulate 6. GI DVT prophylaxis Discharge Plan: Home Plan to discharge in: Greater than 2 days - Advance Directives Does patient have a Living Will: No Does patient have a Durable POA for Healthcare: No - Code Status/Comfort Care Code Status: Full Code Critical Care: No Time Spent Managing PTS Care (In Minutes): 35
[2022-01-06 06:37] LABS: Albumin 2.9 g/dL (3.4-5.0); Bilirubin Total 1.1 mg/dL (0.2-1.0); Magnesium 2.2 mg/dL (1.8-2.4); Potassium 4.2 mmol/L (3.5-5.1); Protein, Total 5.9 g/dL (6.4-8.2)
[2022-01-06 06:40] LABS: Absolute Lymphocytes (CBC) 1.9 K/uL (0.7-4.9); Hematocrit 34.8 % (36.0-45.0); Lymphocytes % 29.4 % (15.3-44.8); MPV 8.2 fL (7.6-11.3); RBC Red Blood Cell Count 3.82 M/uL (3.86-4.86)
[2022-01-06] MEDS: ONDANSETRON 4 MG/2 ML VIAL IV PRN ×2 (07:46→21:26)
[2022-01-06] MEDS: NA CHLORIDE 0.9% 1,000 ML IV SCH ×3 (07:51→18:33)
[2022-01-06] MEDS: GABAPENTIN 300 MG CAP PO SCH ×3 (08:35→21:26)
[2022-01-06] MEDS: CALCIUM CARBONATE 500 MG TAB PO SCH (08:36)
[2022-01-06] MEDS: MULTIVITAMIN TAB PO SCH (08:36)
[2022-01-06] MEDS ORDERED: BUSPIRONE HCL 5 MG TABLET PO SCH (09:00)
[2022-01-06] MEDS ORDERED: BUPROPION HCL XL 150 MG TAB PO SCH (09:00)
[2022-01-06 09:18] VITALS: O2SAT 100
[2022-01-06] MEDS: FAMOTIDINE 20 MG/2 ML VIAL IV SCH (10:20)
[2022-01-06] MEDS: SUCRALFATE 1 GM TABLET PO SCH ×4 (10:20→21:26)
--- NOTE | 2022-01-06 13:25 | EKG ---
Test Date: 2022-01-03 Test Time: 09:38:49 Engine Dynamometer Tester: ALP MEASUREMENT RESULTS: Intervals: Rate: 53 VT: 132 QRSD: 70 QT: 442 QTc: 414 [place]: P: 90 VT: 132 QRS: 80 T: 108 INTERPRETIVE STATEMENTS: Sinus bradycardia Nonspecific ST abnormality Abnormal ECG Compared to ECG 01/25/2014 12:41:37 ST (T wave) deviation now present Electronically Signed On 01-06-22 13:23:06 CDT by Leonidas Clarke
--- NOTE | 2022-01-06 17:39 | P.PN ---
Subjective Date of Service: 01/06/22 Chief Complaint: Abdominal pain; intractable nausea and vomiting. Subjective: No new changes, Improving Physical Examination - Vital Signs Temperature: 97.8 F Blood Pressure: 125/62 Pulse: 57 Respirations: 16 Pulse Ox (%): 100 - Physical Exam General: Alert, Oriented x3 HEENT: Atraumatic, Normocephalic Respiratory: Normal air movement Cardiovascular: Regular rate/rhythm, Normal S1 S2 Gastrointestinal: Tenderness Musculoskeletal: No swelling Neurological: Normal speech - Studies Medications List Reviewed: Yes Assessment And Plan - Plan Nausea with vomiting: Patient has had some improvement however she still has issues after feeding today. We have started Pepcid and sucralfate as she does report history of reflux esophagitis. Will monitor symptom post management changes. Reflux esophagitis: There was concern for possible flare-up of reflux esophagitis. Therapy with sucralfate and Pepcid started. Monitor closely. Will follow symptom. Disposition: For possible discharge in next 24.
[2022-01-06] MEDS ORDERED: clonazePAM 0.5 MG TAB PO SCH (21:00)
[2022-01-07] MEDS: NA CHLORIDE 0.9% 1,000 ML IV SCH (03:57)
[2022-01-07] MEDS: MULTIVITAMIN TAB PO SCH (09:36)
[2022-01-07] MEDS: SUCRALFATE 1 GM TABLET PO SCH ×2 (09:36→14:52)
[2022-01-07] MEDS: FAMOTIDINE 20 MG/2 ML VIAL IV SCH (09:37)
[2022-01-07] MEDS: CALCIUM CARBONATE 500 MG TAB PO SCH (09:37)
[2022-01-07] MEDS: GABAPENTIN 300 MG CAP PO SCH ×2 (09:37→14:52)
--- NOTE | 2022-01-07 09:50 | P.DS ---
Admission Date: 01/03/22 Discharge Date: 01/07/22 Disposition: ROUTINE DISCHARGE Discharge Condition: GOOD Reason for Admission: Abdominal pain; intractable nausea and vomiting. Brief History of Present Illness: Patient is a 61-year-old female who comes to the hospital with abdominal pain along with intractable nausea vomiting. Pain was mainly in the right upper quadrant. Imaging studies were unremarkable. Enzyme levels were unremarkable. However, patient has lost about 20 pounds over the last couple of weeks. She is not really feeling better and she is very lethargic. She is resting comfortably at this time but she will be admitted for further work-up. Initially keep her under observation and if she tolerates diet in the morning that anticipate discharge home. Hospital Course: She had continual abd discomfort and nausea after admission. chest pain work up was negative. She was started on pepcid and sucralfate and she improved significantly. she did report hx of GERD. she was able to tolerate oral feeds well and she was deemed stable for discharge to continue antacid therapy. Vital Signs/Physical Exam: Temp Pulse Resp BP Pulse Ox 97.7 F 67 16 118/69 100 01/07/22 08:00 01/07/22 08:00 01/07/22 08:00 01/07/22 08:00 01/07/22 08:00 General: Alert, Oriented x3 HEENT: Atraumatic, Normocephalic Neck: Supple Respiratory: Normal air movement Cardiovascular: Regular rate/rhythm, Normal S1 S2 Gastrointestinal: Soft and benign Musculoskeletal: No swelling Neurological: Normal speech, Normal strength at 5/5 x4 extr Laboratory Data at Discharge: WBC 6.4 K/uL (4.3-10.9) 01/06/22 06:07 Hgb 12.3 g/dL (12.0-15.0) 01/06/22 06:07 Hct 34.8 % (36.0-45.0) L 01/06/22 06:07 Plt Count 260 K/uL (152-406) 01/06/22 06:07 PT 13.3 SECONDS (9.5-12.5) H 01/03/22 09:24 INR 1.20 01/03/22 09:24 Sodium 144 mmol/L (136-145) 01/06/22 06:07 Potassium 4.2 mmol/L (3.5-5.1) 01/06/22 06:07 BUN 5 mg/dL (7-18) L 01/06/22 06:07 Creatinine 0.85 mg/dL (0.55-1.3) 01/06/22 06:07 Glucose 84 mg/dL (74-106) 01/06/22 06:07 Magnesium 2.2 mg/dL (1.8-2.4) 01/06/22 06:07 Total Bilirubin 1.1 mg/dL (0.2-1.0) H 01/06/22 06:07 AST 31 U/L (15-37) 01/06/22 06:07 ALT 52 U/L (12-78) 01/06/22 06:07 Alkaline Phosphatase 56 U/L (45-117) 01/06/22 06:07 Lipase 120 U/L (73-393) 01/03/22 09:24 Home Medications: Bupropion *Xl* [Wellbutrin XL*] 300 mg PO TID 01/25/14 Buspirone HCl [Buspar*] 30 mg PO DAILY 12/24/20 Calcium Citrate 200 mg PO DAILY 12/24/20 Gabapentin 300 mg PO TID 12/24/20 Multivitamin 1 each PO DAILY 12/24/20 Famotidine [Pepcid] 20 mg PO BID 30 Days #60 tablet 01/07/22 Sucralfate [Carafate*] 1 gm PO QID 14 Days #56 tab 01/07/22 New Medications: Sucralfate [Carafate*] 1 gm PO QID 14 Days #56 tab Famotidine [Pepcid] 20 mg PO BID 30 Days #60 tablet Diet: Regular Followup: NONE,NONE [Primary Care Provider] -
[2022-01-07 16:12] VITALS: BP 109/61; TEMP 98.8
== END 2022-01-07 17:17 | disposition home or self-care (01) | DRG 392 ==
LOC: ER 08:30 → ERHOLD 10:14 → 4TH 19:32
PROVIDERS: ADMIT Hospitalist; ATTEND Hospitalist
DX: K21.00 Gastro-esophageal reflux disease with esophagitis, without bleeding (principal); F41.9 Anxiety disorder, unspecified; I10 Essential (primary) hypertension; R10.9 Unspecified abdominal pain; R11.2 Nausea with vomiting, unspecified; R53.83 Other fatigue; Z20.822 Contact with and (suspected) exposure to COVID-19
CPT/HCPCS: 36415; 71045; 74177; 80048; 80053; 80076; 81003; 81015; 83690; 83735; 83880; 84132; 84484; 85025; 85610; 87086; 87088; 93005; 96361; 96374; 96375; 99284; 99285; C9113; J2270; J2405; J2550; J3480; J3490; J7030; J7120; Q9967; U0003

== ENCOUNTER 2022-04-07 18:20 | Inpatient (IN) | payer OTHER ==
--- OUTSIDE RECORDS SUMMARY | 2022-04-07 18:25 | XMS REPORT | Continuity of Care Document ---
:1960 Author Organization [facility] t Address [address] [place] [address] Care Team Providers Name Role Phone SEJAL CHARLES Primary Care Physician Unavailable RIP VERNON Attending Clinician Unavailable RIP VERNON Attending Clinician Unavailable Lab, Ang - Db Attending Clinician Unavailable Rip Vernon MD Attending Clinician Payers Payer Name Policy Type Policy Number Effective Date Expiration Date [facility] [id number] 2021 00:00:00 Problems Condition Condition Condition Status Onset Resolution Last Treating Co mments Source Name Details Category Date Date Treatment Clinician Date PTSD PTSD Disease Active Univers (post-trau (post-trau it y of [facility] stress stress Medical disorder) disorder) Bran ch Anxiety Anxiety Disease Active Univers disorder, disorder, [place] [facility] Essential Essential Disease Active Uni vers tremor tremor ity of [facility] Allergies, Adverse Reactions, Alerts Allergy Allergy Status Severity Reaction(s) Onset Inactive Treating Comm ents Source Name Type Date Date Clinician Sulfamet Propensi Active Hives Univer s hoxazole ty to 3-21 ity of adverse 00:00: [place] reaction 00 [facility] SULFAMET DRUG Active Hives Univers HOXAZOLE INGREDI 3-21 ity of 00:00: [place] 00 [facility] Sulfamet Propensi Active Rash Univer s hoxazole ty to 3-17 ity of -Trimeth adverse 00:00: [place] oprim reaction 00 [facility] SULFAMET DRUG Active Med Rash Univers HOXAZOLE 3-17 ity of -TRIMETH 00:00: [place] OPRIM 00 Medical Branch Ciproflo Propensi Active Hives Univer s xacin ty to 7-15 ity of adverse 00:00: [place] reaction Medical s Branch Metronid Propensi Active Other - See U nivers azole ty to comments 7-15 ity of adverse 00:00: [place] reaction Medical s Branch CIPROFLO DRUG Active Rash Univers XACIN INGREDI 7-15 ity of 00:00: [place] [facility] METRONID DRUG Active Hives Univers AZOLE INGREDI 7-15 ity of 00:00: [place] 00 Medical Branch Social History Social Habit Start Date Stop Date Quantity Comments Source Exposure to 2022-03-25 2022-04-04 Not sure [facility] SARS-CoV-2 00:00:00 14:49:00 [facility] (event) Branch Alcohol intake 2022-03-25 2022-03-25 Lifetime University of 00:00:00 00:00:[address] [facility] (finding) Branch Sex Ass[birth year] At [birth year] Universit y of 00:00:00 00:00:[address] [facility] Branch Smoking Status Start Date Stop Date Source Tobacco smoking consumption Univ ersity of [facility] unknown Branch Medications Ordered Filled Start Stop Current Ordering Indication Dosage Frequency Signature Comments Components Source Medication Medication Date Date Medication? Clinician (SIG) Name Name primidone Yes [id number] 50mg Take 1 U nivers (MYSOLINE) 9-02 tablet by ity of 50 mg 00:00: mouth in [place] tablet 00 the Medical morning Branch and 1 tablet in the evening. topiramate Yes [id number] Take 4 Univers 25 mg 8-31 tablets in ity of tablet 00:00: the [place] 00 morning Medical and 2 Branch tablets in the evening. After one week take 4 tablets in the morning and evening. topiramate Yes [id number] Take 4 Univers 25 mg 8-31 tablets in ity of tablet 00:00: the [place] 00 morning Medical and 2 Branch tablets in the evening. After one week take 4 tablets in the morning and evening. Estradiol Yes INSERT 1 Univ ers 10 mcg 6-28 TABLET ity of tablet 00:00: VAGINALLY TWICE A Medical WEEK Branch Estradiol 2021-0 Yes INSERT 1 Univ ers 10 mcg 6-28 TABLET ity of tablet 00:00: VAGINALLY TWICE A Medical WEEK Branch proMETHazin 2021-0 Yes TAKE 1 Univ ers e 25 mg 6-01 TABLET BY ity of tablet 00:00: MOUTH 00 EVERY 6 Medical HOURS Branch NEEDED FOR NAUSEA proMETHazin 2021-0 Yes TAKE 1 Univ ers e 25 mg 6-01 TABLET BY ity of tablet 00:00: MOUTH 00 EVERY 6 Medical HOURS Branch NEEDED FOR NAUSEA dicyclomine 2021-0 Yes 20mg Take 20 mg Univers 20 mg 5-31 by mouth ity of tablet 00:00: in the [place] morning Medical and 20 mg Branch at noon and 20 mg in the evening. famotidine 0 Yes 20mg Take 20 mg U nivers 20 mg 5-31 by mouth ity of tablet 00:00: in the [place] morning. Medical Branch dicyclomine 2021-0 Yes 20mg Take 20 mg Univers 20 mg 5-31 by mouth ity of tablet 00:00: in the [place] morning Medical and 20 mg Branch at noon and 20 mg in the evening. famotidine 2021-0 Yes 20mg Take 20 mg U nivers 20 mg 5-31 by mouth ity of tablet 00:00: in the [place] morning. Medical Branch Immunizations Ordered Filled Immunization Date Status Comments [facility] e Immunization Name Name SARS-COV-2 COVID-19 2020-12-07 Completed Unive rsity of PFIZER VACCINE 00:00:00 [facility] SARS-COV-2 COVID-19 2020-12-07 Completed Unive rsity of PFIZER VACCINE 00:00:00 [facility] SARS-COV-2 COVID-19 2020-11-17 Completed Unive rsity of PFIZER VACCINE 00:00:00 [facility] SARS-COV-2 COVID-19 2020-11-17 Completed Unive rsity of PFIZER VACCINE 00:00:00 [facility] Procedures This patient has no known procedures. Encounters Start End Encounter Admission Attending Care Care Encounter Source Date/Time Date/Time Type Type Clinicians Facility Department ID 2022-04-25 2022-04-25 Outpatient RIP JEFFERY [facility] [id number] Univers 08:00:00 08:00:00 RIP VERNON [id number] [facility] 2022-04-25 2022-04-25 Outpatient RIP JEFFERY [facility] [id number] Univers 08:00:00 08:00:00 RIP VERNON marisela [facility] 2022-04-04 2022-04-04 [facility], Ang - [facility] [id number] Univers 15:45:00 16:00:00 Visit Rip Vernon [facility] [id number] ity of [place] [id number] Shabbir as GARRET?BLEA [id number] [address] OFFICE BUILDING 2022-04-04 2022-04-04 Outpatient RIP JEFFERY [facility] [id number] Univers 15:45:00 15:45:00 RIP VERNON [id number] [facility] 2022-04-04 2022-04-04 Outpatient RIP JEFFERY [facility] [id number] Univers 15:45:00 15:45:00 RIP VERNON [facility] 2022-04-03 2022-04-03 Telephone Janeen [facility] [id number] Univers 00:00:00 00:00:00 [facility] [id number] ity of [place] [id number] Shabbir as GARRET?BLEA [id number] [address] MEDICAL OFFICE [facility] Results This patient has no known results.
[2022-04-07 19:37] LABS: Protime INR 1.05
[2022-04-07 19:40] LABS: Absolute Lymphocytes (CBC) 0.9 K/uL (0.7-4.9); Lymphocytes % 10.1 % (15.3-44.8); MCV 93.5 fL (80-100); MPV 7.8 fL (7.6-11.3); RBC Red Blood Cell Count 4.71 M/uL (3.86-4.86)
[2022-04-07] MEDS ORDERED: PROMETHAZINE INJ 25 MG/ML AMP ONE ×2 (19:52→21:17)
[2022-04-07 19:53] LABS: Albumin 4.1 g/dL (3.4-5.0); Bilirubin Direct 0.3 mg/dL (0-0.2); Bilirubin Total 0.9 mg/dL (0.2-1.0); Magnesium 2.2 mg/dL (1.8-2.4); Potassium 3.7 mmol/L (3.5-5.1); Troponin High Sensitivity 5.2 pg/mL (<58.9)
[2022-04-07] MEDS ORDERED: FAMOTIDINE 20 MG/2 ML VIAL IV ONE (19:53)
--- NOTE | 2022-04-07 20:30 | RAD REPORT ---
EXAM DESCRIPTION: RAD - Chest Single View - 04/07/2022 7:55 pm CLINICAL HISTORY: vomiting COMPARISON: Chest Single View dated 07/21/2017; CHEST SINGLE VIEW dated 05/31/2008Chest Single View dated 01/03/2022; Chest Single View dated 01/01/2022; ABDOMEN ACUTE SERIES dated 03/09/2014; CHEST SINGLE V IEW dated 01/25/2014 FINDINGS: Lines: None. Lungs: Mild increased opacities in the lung bases, right greater than left. Pleural: No significant pleural effusions or pneumothorax. Cardiac: The heart size is within normal limits. Mediastinum: Within normal limits. Bones: No acute fractures. Other: None IMPRESSION: Mild increased basilar opacities. In the setting of vomiting, this could represent mild aspiration pneumonitis.
[2022-04-07] MEDS ORDERED: NA CHLORIDE 0.9% 500 ML ONE (21:17)
--- NOTE | 2022-04-07 21:57 | RAD REPORT ---
EXAM DESCRIPTION: CTChest Abdomen Pelvis W Cont - 04/07/2022 9:45 pm CLINICAL HISTORY: vomiting COMPARISON: Abdomen Pelvis W Contrast dated 12/31/2021None TECHNIQUE: CT of the chest, abdomen, and pelvis was performed. All CT scans are performed using dose optimization technique as appropriate and may include automated exposure control or mA/KV adjustment according to patient size. FINDINGS: Thorax: Chest Wall: No abnormal mass Lungs: No acute abnormality. Pleura: No effusions or pneumothorax. Mallika/Mediastinum: No lymphadenopathy. Small hiatal hernia. Aorta/Pulmonary Arteries: Unremarkable Heart: Normal size. Abdomen/Pelvis: Liver: No acute abnormality or suspicious lesions. Biliary: Cholecystectomy Stomach: No significant focal abnormality. Duodenum: No significant focal abnormality. Pancreas: No significant abnormality. Spleen: No significant abnormality. Adrenal: No suspicious lesions. Kidney/ureter: No hydronephrosis. No renal calculi. Too small to characterize and/or benign appearing renal lesions are noted. Retroperitoneum: No retroperitoneal adenopathy. Vascular: No aneurysm. Bowel: Wall thickening involving the ascending, transverse, and descending colon versus underdistenti on. Normal appendix. Peritoneum: No ascites or free air. Bladder: Grossly unremarkable. Reproductive: No adnexal masses. Bones: No acute fracture. Other: n/a IMPRESSION: No definite acute findings identified within the chest, abdomen, or pelvis. Possible wal l thickening of the colon which could reflect a mild colitis versus underdistention. Normal appendix. No bowel obstruction. No acute findings in the chest.
--- NOTE | 2022-04-07 23:23 | ER ---
Nurse's Notes [facility] Name: Anabel Coleman Age: 62 yrs Sex: Female : 1960 Arrival Date: 04/07/2022 Time: 18:24 Bed 14 Private MD: Diagnosis: Nausea with vomiting, unspecified-intractable;Diarrhea, unspecified Presentation: 04/07 18:27 Chief complaint: Patient states: Patient has been having vomiting since about 0130 this ko1 morning. Also has diarrhea, has been taking anti nausea meds (zofran) but its not working. Coronavirus screen: Client denies travel out of the [place] in the last 14 days. nausea, vomiting. Ebola Screen: No symptoms or risks identified at this time. Initial Sepsis Screen: Does the patient meet any 2 criteria? No. Patient's initial sepsis screen is negative. Does the patient have a suspected source of infection? No. Patient's initial sepsis screen is negative. Risk Assessment: Do you want to hurt yourself or someone else? Patient reports no desire to harm self or others. Onset of symptoms was April 07, 2022. 18:27 Method Of Arrival: Wheelchair ko1 18:27 Acuity: [place] 3 ko1 Triage Assessment: 18:30 General: Appears ill, Behavior is cooperative, appropriate for age, anxious. Pain: ko1 Denies pain. GI: Reports nausea, vomiting. Historical: - Allergies: 18:30 Ciprofloxacin; ko1 18:30 metronidazole; ko1 18:30 Sulfa (Sulfonamide Antibiotics); ko1 - Home Meds: 18:30 Bupropion Oral [Active]; Buspirone Oral [Active]; gabapentin Oral [Active]; Trazodone ko1 Oral [Active]; - PMHx: 18:30 Hypertension; PTSD; ko1 - Immunization history:: Adult Immunizations unknown. - Social history:: Smoking status: Patient denies any tobacco usage or history of. Screenin:15 Abuse screen: Denies threats or abuse. Nutritional screening: No deficits noted. jb4 Tuberculosis screening: No symptoms or risk factors identified. Fall Risk None identified. Assessment: 19:15 General: Appears in no apparent distress. uncomfortable, Behavior is calm, cooperative, jb4 appropriate for age. Pain: Denies pain. Neuro: Level of Consciousness is awake, alert, obeys commands, Oriented to person, place, time, situation. Cardiovascular: Patient's skin is warm and dry. Respiratory: Airway is patent Respiratory effort is even, unlabored, Respiratory pattern is regular, symmetrical. GI: Abdomen is flat, non-distended, Pt is actively vomiting bile. : No signs and/or symptoms were reported regarding the genitourinary system. EENT: No signs and/or symptoms were reported regarding the EENT system. Derm: Skin is intact, Skin is pink, warm \T\ dry. Musculoskeletal: Circulation, motion, and sensation intact. Range of motion: intact in all extremities. 20:15 Reassessment: Patient appears in no apparent distress at this time. Patient and/or jb4 family updated on plan of care and expected duration. Pain level reassessed. Patient is alert, oriented x 3, equal unlabored respirations, skin warm/dry/pink. 21:00 Reassessment: Patient appears in no apparent distress at this time. Patient and/or jb4 family updated on plan of care and expected duration. Pain level reassessed. Patient is alert, oriented x 3, equal unlabored respirations, skin warm/dry/pink. Patient states feeling better. 22:00 Reassessment: Patient appears in no apparent distress at this time. Patient and/or jb4 family updated on plan of care and expected duration. Pain level reassessed. Patient is alert, oriented x 3, equal unlabored respirations, skin warm/dry/pink. 23:00 Reassessment: Patient appears in no apparent distress at this time. Patient and/or jb4 family updated on plan of care and expected duration. Pain level reassessed. Patient is alert, oriented x 3, equal unlabored respirations, skin warm/dry/pink. 04/08 00:00 Reassessment: Patient appears in no apparent distress at this time. Patient and/or jb4 family updated on plan of care and expected duration. Pain level reassessed. Patient is alert, oriented x 3, equal unlabored respirations, skin warm/dry/pink. 01:00 Reassessment: Patient appears in no apparent distress at this time. Patient and/or jb4 family updated on plan of care and expected duration. Pain level reassessed. Patient is alert, oriented x 3, equal unlabored respirations, skin warm/dry/pink. 02:00 Reassessment: Patient appears in no apparent distress at this time. Patient and/or jb4 family updated on plan of care and expected duration. Pain level reassessed. Patient is alert, oriented x 3, equal unlabored respirations, skin warm/dry/pink. Vital Signs: 04/07 18:27 BP 118 / 59; Pulse 79; Resp 22; Temp 97; Pulse Ox 98% ; Weight 60.78 kg; Height 5 ft. 3 ko1 in. (160.02 cm); Pain 0/10; 21:00 BP 123 / 71; Pulse 80; Resp 18; Pulse Ox 99% on R/A; jb4 23:45 BP 97 / 67; Pulse 76; Resp 20; Pulse Ox 98% on R/A; jb4 04/08 00:30 BP 92 / 68; Pulse 74; Resp 23; Pulse Ox 97% on R/A; jb4 01:15 BP 96 / 66; Pulse 75; Resp 14; Pulse Ox 98% ; jb4 02:30 BP 96 / 64; Pulse 70; Resp 15; Pulse Ox 97% on R/A; jb4 04/07 18:27 Body Mass Index 23.74 (60.78 kg, 160.02 cm) ko1 ED Course: 04/07 18:24 Patient arrived in ED. mr 18:30 Triage completed. ko1 18:30 Arm band placed on right wrist. Patient placed in waiting room, Patient notified of ko1 wait time. 18:33 Mane Jacobo PA is PHCP. cp 18:33 Erasmo Garcia MD is Attending Physician. cp 18:36 Patient placed in an exam room, on a stretcher. ll1 19:07 Francisco J Perez, RN is Primary Nurse. jb4 19:57 XRAY Chest (1 view) In Process Unspecified. EDMS 20:17 Call light in reach. Side rails up X 1. Lights dimmed. Warm blanket given. wm 21:47 CT Chest, Abdomen, Pelvis - W/Contrast In Process Unspecified. EDMS 23:22 Andrea Joya is Hospitalizing Provider. cp 04/08 03:03 No provider procedures requiring assistance completed. Patient admitted, IV remains in jb4 place. 09:08 Primary Nurse role handed off by Francisco J Perez, RN em1 Administered Medications: 04/07 19:41 Not Given (Other Intervention Used): Zofran (Ondansetron) 4 mg IVP once; over 2 minutes jb4 20:03 Drug: Pepcid (famotidine) 20 mg Route: IVP; Site: right antecubital; jb4 20:03 Drug: Phenergan (promethazine) 12.5 mg Route: IVP; Site: right antecubital; jb4 21:17 Drug: Phenergan (promethazine) 12.5 mg Route: IVP; Site: right antecubital; jb4 21:17 Drug: NS 0.9% 500 ml Route: IV; Rate: bolus; Site: right antecubital; jb4 23:30 Drug: Ativan (LORazepam) 0.5 mg Route: IVP; Site: right antecubital; jb4 23:41 Not Given (Physician Discretion): Augmentin (Amoxicillin-Clavulanate) 875 mg PO once cp 04/08 00:34 Drug: Zosyn (piperacillin-tazobactam) 3.375 grams Route: IVPB; Infused Over: 60 mins; jb4 Site: right antecubital; 00:35 Drug: CarafATE (sucralfate) 1 grams Route: PO; jb4 00:35 Drug: NS 0.9% 1000 ml Route: IV; Rate: 100 ml/hr; Site: right antecubital; jb4 Medication: 03:03 VIS not applicable for this client. jb4 Outcome: 04/07 23:23 Decision to Hospitalize by Provider. 04/08 03:03 Admitted to ER Hold. Please see [facility] for further documentation. jb4 Condition: stable Discharge instructions given to patient, Instructed on the need for admit, Demonstrated understanding of instructions. 16:46 Patient left the ED. jd3 Signatures: Dispatcher [employer] EDCA DarlingMakayla Eric em1 Mane Jacobo PA PA cp Francisco J Perez RN RN jb4 Fede Perez RN RN jd3 Beatrice Phillips RN RN ll1 Carlyn Pires Kathy, RN RN ko1
--- NOTE | 2022-04-07 23:23 | EDPHYS ---
Physician Documentation [facility] Name: Anabel Coleman Age: 62 yrs Sex: Female : 1960 Arrival Date: 04/07/2022 Time: 18:24 Bed 14 Private MD: ED Physician Erasmo Garcia HPI: 04/07 19:00 This 62 yrs old Female presents to ER via Wheelchair with complaints of cp Vomiting/Diarrhea. 19:00 The patient presents to the emergency department with nausea, with "dry heaves", cp vomiting, that is continuous, described as bilious, diarrhea, that is intermittent, abdominal pain, of the abdomen diffusely. 19:00 Onset: The symptoms/episode began/occurred this morning, about 0130. Possible causes: cp unknown. Associated signs and symptoms: Pertinent negatives: constipation, fever, GI bleeding. Severity of symptoms: in the emergency department the symptoms are unchanged despite home interventions, has tried antiemetics at home. The patient has experienced similar episodes in the past, a few times. Historical: - Allergies: 18:30 Ciprofloxacin; ko1 18:30 metronidazole; ko1 18:30 Sulfa (Sulfonamide Antibiotics); ko1 - Home Meds: 18:30 Bupropion Oral [Active]; Buspirone Oral [Active]; gabapentin Oral [Active]; Trazodone ko1 Oral [Active]; - PMHx: 18:30 Hypertension; PTSD; ko1 - Immunization history:: Adult Immunizations unknown. - Social history:: Smoking status: Patient denies any tobacco usage or history of. ROS: 19:05 Constitutional: Positive for poor PO intake, Negative for body aches, chills, fever. cp 19:05 Eyes: Negative for injury, pain, redness, and discharge. cp 19:05 ENT: Negative for drainage from ear(s), ear pain, sore throat, difficulty swallowing, difficulty handling secretions. 19:05 Cardiovascular: Negative for chest pain, palpitations. 19:05 Respiratory: Negative for cough, shortness of breath, wheezing. 19:05 Abdomen/GI: Positive for nausea and vomiting, diarrhea, anorexia, Negative for constipation, hematemesis, black/tarry stool, rectal bleeding. 19:05 : Negative for urinary symptoms. 19:05 Neuro: Negative for altered mental status, headache, syncope. 19:05 All other systems are negative. Exam: 19:10 Constitutional: The patient appears in no acute distress, alert, awake, cp non-diaphoretic, non-toxic, well developed, well nourished, uncomfortable. 19:10 Head/Face: Normocephalic, atraumatic. cp 19:10 Eyes: Periorbital structures: appear normal, Pupils: equal, round, and reactive to light and accomodation, Extraocular movements: intact throughout, Conjunctiva: normal, no exudate, no injection, Sclera: no appreciated abnormality, Lids and lashes: appear normal, bilaterally. 19:10 ENT: External ear(s): are unremarkable, Nose: is normal, Mouth: Lips: moist, Oral mucosa: pink and intact, moist, Posterior pharynx: Airway: no evidence of obstruction, patent. 19:10 Neck: ROM/movement: is normal, is supple, without pain, no range of motions limitations, no meningismus. 19:10 Chest/axilla: Inspection: normal. 19:10 Cardiovascular: Rate: normal, Rhythm: regular, Edema: is not appreciated, JVD: is not appreciated. 19:10 Respiratory: the patient does not display signs of respiratory distress, Respirations: normal, no use of accessory muscles, no retractions, labored breathing, is not present, Breath sounds: are clear throughout, no decreased breath sounds, no stridor, no wheezing. 19:10 Abdomen/GI: Inspection: abdomen appears normal, Bowel sounds: active, all quadrants, Palpation: soft, in all quadrants, moderate abdominal tenderness, in all quadrants, rebound tenderness, is not appreciated, involuntary guarding, is not appreciated. 19:10 Back: pain, is absent, ROM is normal. 19:10 Neuro: Orientation: to person, place \\T\\ time. Mentation: is normal, Motor: moves all fours, strength is normal, Sensation: is normal. 19:33 ECG was reviewed by the Attending Physician. cp Vital Signs: 18:27 BP 118 / 59; Pulse 79; Resp 22; Temp 97; Pulse Ox 98% ; Weight 60.78 kg; Height 5 ft. 3 ko1 in. (160.02 cm); Pain 0/10; 21:00 BP 123 / 71; Pulse 80; Resp 18; Pulse Ox 99% on R/A; jb4 23:45 BP 97 / 67; Pulse 76; Resp 20; Pulse Ox 98% on R/A; jb4 04/08 00:30 BP 92 / 68; Pulse 74; Resp 23; Pulse Ox 97% on R/A; jb4 01:15 BP 96 / 66; Pulse 75; Resp 14; Pulse Ox 98% ; jb4 02:30 BP 96 / 64; Pulse 70; Resp 15; Pulse Ox 97% on R/A; jb4 04/07 18:27 Body Mass Index 23.74 (60.78 kg, 160.02 cm) ko1 MDM: 04/07 18:33 Patient medically screened. 23:15 Data reviewed: vital signs, nurses notes, lab test result(s), EKG, radiologic studies, cp CT scan. 23:15 Test interpretation: by ED physician or midlevel provider: ECG. Response to treatment: cp the patient's symptoms have mildly improved after treatment, Patient continues to have nausea and vomits when attempting oral fluid intake. Will admit for continued treatment. Physician consultation: Ary RHOADES was called at 23:15, was contacted at 23:15, regarding admission, to the telemetry unit. patient's condition. 04/07 18:55 Order name: Basic Metabolic Panel; Complete Time: 19:57 04/07 20:51 Interpretation: Normal except: CL 110; ANION GAP 16.7; GLUC 152; CRE 1.31; GFR 46. 04/07 18:55 Order name: CBC with Diff; Complete Time: 19:57 04/07 21:19 Interpretation: Normal except: JUANA% 87.2; LYM% 10.1; MN% 2.5. 04/07 18:55 Order name: LFT's; Complete Time: 19:57 04/07 21:19 Interpretation: Normal except: BILID 0.3; GLOB 3.9. 04/07 18:55 Order name: Magnesium; Complete Time: 19:57 cp 04/07 18:55 Order name: PT-INR; Complete Time: 19:57 cp 04/07 18:55 Order name: Troponin HS; Complete Time: 19:57 cp 04/07 18:55 Order name: Lipase; Complete Time: 19:57 cp 04/08 00:47 Order name: COVID-19 SARS RT PCR (Document "Date of Onset" if Symptomatic) mw2 04/08 02:03 Order name: SARS-COV-2 RT PCR EDMS 04/08 05:35 Order name: CBC with Automated Diff EDMS 04/08 06:01 Order name: Basic Metabolic Panel EDMS 04/08 06:01 Order name: Phosphorus EDMS 04/08 06:01 Order name: Magnesium EDMS 04/07 18:55 Order name: XRAY Chest (1 view); Complete Time: 20:51 cp 04/07 18:55 Order name: EKG; Complete Time: 18:56 cp 04/07 18:55 Order name: Cardiac monitoring; Complete Time: 20:17 cp 04/07 18:55 Order name: EKG - Nurse/Tech; Complete Time: 19:35 cp 04/07 20:54 Order name: CT Chest, Abdomen, Pelvis - W/Contrast; Complete Time: 22:10 cp 04/08 07:07 Order name: Urinalysis EDMS 04/07 18:55 Order name: IV Saline Lock; Complete Time: 19:35 cp 04/07 18:55 Order name: Labs collected and sent; Complete Time: 19:35 cp 04/07 18:55 Order name: O2 Per Protocol; Complete Time: 19:35 cp 04/07 18:55 Order name: O2 Sat Monitoring; Complete Time: 19:35 cp 04/07 22:12 Order name: PO challenge; Complete Time: 00:57 cp EC:33 Rate is 63 beats/min. Rhythm is regular. MN interval is normal. QRS interval is normal. cp QT interval is prolonged at 546 msec. Interpreted by me. Reviewed by me. Administered Medications: 19:41 Not Given (Other Intervention Used): Zofran (Ondansetron) 4 mg IVP once; over 2 minutes jb4 20:03 Drug: Pepcid (famotidine) 20 mg Route: IVP; Site: right antecubital; jb4 20:03 Drug: Phenergan (promethazine) 12.5 mg Route: IVP; Site: right antecubital; jb4 21:17 Drug: Phenergan (promethazine) 12.5 mg Route: IVP; Site: right antecubital; jb4 21:17 Drug: NS 0.9% 500 ml Route: IV; Rate: bolus; Site: right antecubital; jb4 23:30 Drug: Ativan (LORazepam) 0.5 mg Route: IVP; Site: right antecubital; jb4 23:41 Not Given (Physician Discretion): Augmentin (Amoxicillin-Clavulanate) 875 mg PO once cp 04/08 00:34 Drug: Zosyn (piperacillin-tazobactam) 3.375 grams Route: IVPB; Infused Over: 60 mins; jb4 Site: right antecubital; 00:35 Drug: CarafATE (sucralfate) 1 grams Route: PO; jb4 00:35 Drug: NS 0.9% 1000 ml Route: IV; Rate: 100 ml/hr; Site: right antecubital; jb4 Disposition Summary: 04/07/22 23:23 Hospitalization Ordered Hospitalization Status: Observation cp Provider: Andrea Joya cp Condition: Stable cp Problem: new cp Symptoms: have improved cp Bed/Room Type: Standard cp Location: Telemetry/MedSurg (observation)(04/08/22 14:25) em1 Room Assignment: 204(04/08/22 14:25) em1 Diagnosis - Diarrhea, unspecified cp - Nausea with vomiting, unspecified - intractable(04/07/22 23:23) cp Forms: - Medication Reconciliation Form cp - SBAR form cp Signatures: Dispatcher [employer] EDMS Kristofer Payne em1 Mane Jacobo PA PA cp Francisco J Perez, RN RN jb4 Pearl Perera tw5 Ary Rae PA PA sb3 Naila Clay RN RN ko1 Corrections: (The following items were deleted from the chart) 04/07 23:23 23:23 Nausea with vomiting, unspecified cp cp 04/08 02:07 04/07 23:23 Telemetry/MedSurg (observation) cp tw5 04/08 02:07 09 23:23 cp tw5 04/08 14:25 02:07 [facility] ER HOLD tw5 em1 14:25 02:07 ERHOLD- 5 em1
[2022-04-07] MEDS ORDERED: LORazepam 2 MG/ML VIAL ONE (23:26)
[2022-04-07] MEDS ORDERED: NA CHLORIDE 0.9% 100 ML ONE (23:51)
[2022-04-07] MEDS ORDERED: PIPERACIL/TAZO 3.375 GM VIAL IV ONE (23:52)
--- NOTE | 2022-04-07 23:59 | P.HP ---
Certification for Inpatient Patient admitted to: Inpatient With expected LOS: <2 Midnights Patient will require the following post-hospital care: None Practitioner: I am a practitioner with admitting privileges, knowledge of patient current condition, hospital course, and medical plan of care. Services: Services provided to patient in accordance with Admission requirements found in Title 42 Section 412.3 of the Code of Federal Regulations Patient History Date of Service: 04/08/22 Reason for admission: Intractable Vomiting History of Present Illness: Patient is a 61-year-old female who presented to the ED with complaints of vomiting for about 24 hours that is not relieved with zofran. Patient presented here about 3 months ago with very similar symptoms and was admitted. She had a negative workup and her symptoms finally improved after trial of pepcid and sucralfate. It was discovered that her symptoms were likely secondary to anxiety. She states today that she has had some new stressors in her life that she is anxious about- CKD diagnosis, possible parkinson diagnosis, and 1 of her children may have cancer. Her QT was prolonged on EKG so no zofran was given in ED. She had 2 trials of phenegran and continued to vomit. Her CT showed ": No definite acute findings identified within the chest, abdomen, or pelvis. Possible wall thickening of the colon which could reflect a mild colitis versus underdistention. Normal appendix. No bowel obstruction. No acute findings in the chest." and subsequently started on zosyn. ED provider wishes to admit patient for further evaluation and treatment. Allergies milk Adverse Reaction (Mild, Verified 01/04/22 05:52) Nausea/Vomiting ciprofloxacin Adverse Reaction (Verified 01/04/22 05:52) Hives/Rash metronidazole [From Flagyl] Adverse Reaction (Verified 01/04/22 05:52) Hives/Rash Home medications list reviewed: Yes Home Medications: Bupropion *Xl* [Wellbutrin XL*] 300 mg PO TID 01/25/14 Buspirone HCl [Buspar*] 30 mg PO DAILY 12/24/20 Calcium Citrate 200 mg PO DAILY 12/24/20 Gabapentin 300 mg PO TID 12/24/20 Multivitamin 1 each PO DAILY 12/24/20 Famotidine [Pepcid] 20 mg PO BID 30 Days #60 tablet 01/07/22 Sucralfate [Carafate*] 1 gm PO QID 14 Days #56 tab 01/07/22 - Past Medical/Surgical History Diabetic: No -: Anxiety -: PTSD -: Csection -: Tubal ligation Psychosocial/ Personal History: Patient lives at home alone. - Family History Family History: Reviewed- Non-Contributory - Social History Smoking Status: Never smoker Alcohol use: No CD- Drugs: No Caffeine use: Yes Place of Residence: Home Review of Systems Gastrointestinal: Nausea, Vomiting, Diarrhea Physical Examination - Physical Exam General: Alert, In no apparent distress HEENT: Atraumatic, PERRLA, EOMI, Sclerae nonicteric Neck: Supple, No LAD Respiratory: Clear to auscultation bilaterally, Normal air movement Cardiovascular: Regular rate/rhythm, Normal S1 S2 Gastrointestinal: Normal bowel sounds, No tenderness Musculoskeletal: No tenderness Integumentary: No rashes Neurological: Normal speech, Normal strength at 5/5 x4 extr, Normal tone, Normal affect - Studies Laboratory Data (last 24 hrs) 04/07/22 19:21: PT 11.6, INR 1.05 04/07/22 19:21: WBC 9.10, Hgb 14.8, Hct 44.0, Plt Count 385 04/07/22 19:21: Sodium 144, Potassium 3.7, BUN 15, Creatinine 1.31 H, Glucose 152 H, Magnesium 2.2, Total Bilirubin 0.9, AST 23, ALT 38, Alkaline Phosphatase 84, Lipase 82 Assessment and Plan - Problems (Diagnosis) (1) Intractable nausea and vomiting Current Visit: Yes Status: Acute (2) SALMA (acute kidney injury) Current Visit: Yes Status: Acute (3) Generalized anxiety disorder Current Visit: Yes Status: Chronic - Plan -Phenegran PRN vomiting -Continue zosyn for suspected colitis -Clear liquid diet, advance as tolerated -IV hydration with NS at 100 cc/hr -Carafate and pepcid daily, have successfully resolved vomiting in past -Monitor renal function -Anxiolytics PRN -Monitor and replete electrolytes per protocol -Reconcile and continue home medications -Lovenox for VTE ppx -Full code Discharge Plan: Home Plan to discharge in: 48 Hours - Advance Directives Does patient have a Living Will: No Does patient have a Durable POA for Healthcare: No - Code Status/Comfort Care Code Status Assessed: Yes (Full) Critical Care: No Time Spent Managing Pts Care (In Minutes): 50
[2022-04-08] MEDS ORDERED: NA CHLORIDE 0.9% 1,000 ML ONE ×2 (00:09→11:11)
[2022-04-08] MEDS ORDERED: SUCRALFATE 1 GM TABLET ONE ×3 (00:09→13:32)
[2022-04-08] MEDS: NA CHLORIDE 0.9% 1,000 ML IV SCH ×3 (04:11→21:28)
[2022-04-08] MEDS ORDERED: ACETAMINOPHEN 500 MG TAB PO PRN (04:11)
[2022-04-08] MEDS ORDERED: LORazepam 2 MG/ML VIAL IV PRN (04:11)
[2022-04-08 05:30] LABS: Absolute Lymphocytes (CBC) 2.2 K/uL (0.7-4.9); Hematocrit 39.1 % (36.0-45.0); Lymphocytes % 22.4 % (15.3-44.8); MCV 92.9 fL (80-100); MPV 7.9 fL (7.6-11.3); RBC Red Blood Cell Count 4.21 M/uL (3.86-4.86)
[2022-04-08 05:38] LABS: Magnesium 2.4 mg/dL (1.8-2.4); Potassium 3.7 mmol/L (3.5-5.1)
[2022-04-08] MEDS: PROMETHAZINE INJ 25 MG/ML AMP IV PRN ×2 (05:55→17:14)
[2022-04-08] MEDS ORDERED: PROMETHAZINE INJ 25 MG/ML AMP ONE (05:55)
[2022-04-08 06:59] LABS: Urine Bilirubin NEGATIVE (Negative); Urine Blood Trace (Negative); Urine Clarity Clear (Clear); Urine Color Yellow (Yellow); Urine Glucose NEGATIVE (Negative); Urine Mucus Slight /HPF (None Seen); Urine Protein 1+ (Negative); Urine Urobilinogen Normal (Normal)
[2022-04-08 07:07] LABS: Specific Gravity > 1.030 (1.005-1.030)
[2022-04-08] MEDS ORDERED: ONDANSETRON 4 MG/2 ML VIAL IV ONE (07:55)
[2022-04-08] MEDS ORDERED: PIPERACIL/TAZO 3.375 GM VIAL IV ONE (08:53)
[2022-04-08] MEDS ORDERED: ENOXAPARIN 40 MG/0.4 ML SQ ONE (08:53)
[2022-04-08] MEDS ORDERED: NA CHLORIDE 0.9% 100 ML ONE (08:53)
[2022-04-08] MEDS: SUCRALFATE 1 GM TABLET PO SCH ×4 (09:00→21:29)
[2022-04-08] MEDS: PIPER TAZO 3.375 GM in NA CHLORIDE 0.9% 100 ML IV SCH ×2 (09:00→17:15)
[2022-04-08] MEDS: ENOXAPARIN 40 MG/0.4 ML SQ SCH (09:00)
--- NOTE | 2022-04-08 14:32 | EKG ---
Test Date: 2022-04-07 Test Time: 19:27:56 Silk Examiner: ZEFERINO MEASUREMENT RESULTS: Intervals: Rate: 63 VT: 132 QRSD: 72 QT: 546 QTc: 558 [place]: P: 75 VT: 132 QRS: 73 T: 120 INTERPRETIVE STATEMENTS: Normal sinus rhythm Nonspecific T wave abnormality Prolonged QT Abnormal ECG Compared to ECG 01/03/2022 09:38:49 T-wave abnormality now present Prolonged QT interval now present Sinus bradycardia no longer present ST (T wave) deviation no longer present Electronically Signed On 04-08-22 14:29:43 CDT by Leonidas Clarke
[2022-04-08] MEDS: FAMOTIDINE 20 MG/2 ML VIAL IV SCH (21:29)
[2022-04-09] MEDS: PIPER TAZO 3.375 GM in NA CHLORIDE 0.9% 100 ML IV SCH ×3 (01:27→16:04)
[2022-04-09 05:40] LABS: Absolute Lymphocytes (CBC) 2.1 K/uL (0.7-4.9); Hematocrit 31.7 % (36.0-45.0); Lymphocytes % 36.8 % (15.3-44.8); MCV 92.5 fL (80-100); MPV 7.4 fL (7.6-11.3); RBC Red Blood Cell Count 3.43 M/uL (3.86-4.86)
[2022-04-09 05:51] LABS: Magnesium 2.3 mg/dL (1.8-2.4)
[2022-04-09 05:53] LABS: Potassium 2.9 mmol/L (3.5-5.1)
[2022-04-09] MEDS: clonazePAM 0.5 MG TAB PO SCH ×4 (06:00→19:57)
[2022-04-09] MEDS: KCL 20 MEQ/100 mL IVPB 20 MEQ/100 ML BAG IV SCH ×3 (06:15→14:13)
[2022-04-09] MEDS: PROMETHAZINE INJ 25 MG/ML AMP IV PRN ×2 (07:26→19:59)
[2022-04-09] MEDS: NA CHLORIDE 0.9% 1,000 ML IV SCH (07:26)
[2022-04-09] MEDS ORDERED: HOME MED 1 EA UNK (Omeprazole [Omeprazole] 20 MG Capsule.Dr) PO SCH (09:00)
[2022-04-09] MEDS ORDERED: PANTOPRAZOLE 40MG TABLET PO SCH (09:00)
[2022-04-09] MEDS ORDERED: CALCIUM CARBONATE 500 MG TAB PO SCH (09:00)
[2022-04-09] MEDS ORDERED: BUPROPION HCL XL 150 MG TAB PO SCH (09:00)
[2022-04-09] MEDS: ENOXAPARIN 40 MG/0.4 ML SQ SCH (09:13)
[2022-04-09] MEDS: SUCRALFATE 1 GM TABLET PO SCH ×3 (09:13→19:58)
[2022-04-09] MEDS: GABAPENTIN 300 MG CAP PO SCH ×3 (09:13→19:57)
[2022-04-09] MEDS: BUSPIRONE HCL 15 MG TABLET PO SCH ×2 (10:02→14:13)
[2022-04-09 11:31] VITALS: BMI 23.7
[2022-04-09] MEDS: FAMOTIDINE 20 MG/2 ML VIAL IV SCH (20:00)
[2022-04-09 20:26] VITALS: BP 110/61; TEMP 99
[2022-04-09] MEDS ORDERED: MELATONIN 3 MG TABLET PO SCH (21:00)
[2022-04-09 23:49] VITALS: O2SAT 99
== END 2022-04-09 20:30 | disposition home or self-care (01) | DRG 392 ==
LOC: ER 18:20 → ERHOLD 23:53 → 2ND 04-08 16:13
PROVIDERS: ADMIT Internal Medicine Nephrology; ATTEND Hospitalist
DX: K52.9 Noninfective gastroenteritis and colitis, unspecified (principal); N17.9 Acute kidney failure, unspecified; I10 Essential (primary) hypertension; F41.1 Generalized anxiety disorder; Z60.2 Problems related to living alone; Z78.1 Physical restraint status; Z88.1 Allergy status to other antibiotic agents; Z79.899 Other long term (current) drug therapy; Z20.822 Contact with and (suspected) exposure to COVID-19
CPT/HCPCS: 36415; 71045; 71260; 74177; 80048; 80076; 81001; 83690; 83735; 84100; 84132; 84484; 85025; 85610; 93005; 96374; 96375; 99285; J1650; J2405; J2543; J2550; J3480; J7030; J7040; Q9967; U0003